=== PATIENT | female | born 1965 | race Caucasian/White ===

== ENCOUNTER → 2018-01-02 16:35 | Outpatient (CLI) | payer OTHER, SELFPAY ==
[2018-01-02 17:07] LABS: Add Manual Diff / Slide Review NO; Basophils Percent Auto 1.2 % (0-2); Eosinophils Percent Auto 2.1 % (2-4); Hematocrit 42.2 % (36-46); Hemoglobin 14.3 g/dL (12.0-16.0); Lymphocytes Percent Auto 22.9 % (25-40); Mean Corpuscular HGB Conc 33.8 % (30-36); Mean Corpuscular Hemoglobin 29.2 PG (26-34); Mean Corpuscular Volume 86.5 fL (80-100); Monocytes Percent Auto 7.9 % (3-14); Neutrophils Absolute Auto 6000 /uL (3000-5900); Neutrophils Percent Auto 65.9 % (50-75); Platelet Count 235 X10^3/uL (150-400); Red Blood Cell Count 4.88 X10^6/uL (4.0-5.2); Red Cell Distribution Width 13.7 % (11.6-14.8); White Blood Cell Count 9.1 X10^3/uL (4.5-11.0)
[2018-01-02 17:30] LABS: Alanine Aminotransferase 32 IU/L (9-52); Albumin 4.1 g/dL (3.5-5.0); Albumin Globulin Ratio 1.4 (1.0-2.8); Alkaline Phosphatase 64 U/L (38-126); Aspartate Aminotransferase 23 IU/L (14-36); Bilirubin Total 0.4 mg/dL (0.2-1.3); Blood Urea Nitrogen 18 mg/dL (7-17); Calcium 9.1 mg/dL (8.4-10.2); Carbon Dioxide 29 mmol/L (22-32); Chloride 103 mmol/L (98-107); Estimated Glomerular Filt Rate > 60.0 mL/min (>60); Glucose 88 mg/dL (70-100); HEMOLYSIS < 15 (0-50); Potassium 4.5 mmol/L (3.4-5.1); Sodium 141 mmol/L (137-145); Total Protein 7.1 g/dL (6.3-8.2)
[2018-01-02 18:00] LABS: Thyroid Stimulating Hormone 1.89 uIU/mL (0.47-4.68)
== END ==
PROVIDERS: Family Provider Family Medicine; PCP Family Medicine; Visit Provider Family Medicine
DX: E03.9 Hypothyroidism, unspecified (principal); R03.0 Elevated blood-pressure reading, without diagnosis of hypertension
CPT/HCPCS: 36415; 80053; 84443; 85025

== ENCOUNTER → 2018-02-08 16:37 | Outpatient (CLI) | payer OTHER, SELFPAY ==
[2018-02-08 17:55] LABS: Follicle Stimulating Hormone 7.14 mIU/mL; Luteinizing Hormone 5.98 mIU/mL
== END ==
PROVIDERS: PCP Family Medicine; Visit Provider Family Medicine
DX: N95.1 Menopausal and female climacteric states (principal)
CPT/HCPCS: 36415; 83001; 83002

== ENCOUNTER 2018-05-05 19:07 | Emergency (ER) | payer OTHER, SELFPAY ==
[2018-05-05 19:19] VITALS: BP 182/88; PULSE 62; RESP 14; TEMP 36.5; O2SAT 98; BMI 30.1
--- NOTE | 2018-05-05 19:38 | ED.URI ---
HPI - URI/Sore Throat <PACO Balderrama - Last Filed: 05/05/18 21:53> General Chief Complaint: Upper Respiratory Symptoms Stated Complaint: cough,back and rib pain from coughing Time Seen by Provider: 05/05/18 19:08 Source: patient Mode of arrival: ambulatory Limitations: no limitations History of Present Illness HPI Narrative: 52-year-old female with history of hypothyroidism and is a nonsmoker here for complaint of anterior chest wall pain and thoracic back pain. She reports that this started this morning. She states she has had a cough over the past 2 days. She says that the cough has aggravated the discomfort. She denies any shortness of breath. She is able to speak full sentences. No fevers. She denies a productive cough. She denies any stressors or relieves of her discomfort. No nausea vomiting. Positive p.o. intake. No diaphoresis. Related Data Previous Rx's Medication Instructions Recorded OMEPRAZOLE 20 mg PO BID #60 06/08/11 Oxybutynin Chloride (DITROPAN (NOT 5 mg PO BID #60 07/14/11 AVAILABLE)) THYROID (ARMOUR THYROID) 60 mg PO 2 TABS QDAY #60 09/16/11 benzonatate [Tessalon Perles] 200 mg PO TID PRN #20 cap 05/05/18 Allergies Allergy/AdvReac Type Severity Reaction Status Date / Time Meperidine AdvReac Unknown NAUSEA,VOMI Uncoded 06/21/17 12:04 TING Review of Systems <PACO Balderrama - Last Filed: 05/05/18 21:53> Constitutional Denies chills, Denies fatigue, Denies fever(s), Denies lethargy and Denies weakness Eyes Denies change in vision, Denies eye discharge, Denies irritation and Denies loss of vision ENT Ears, Nose, Mouth, and Throat: Denies change in voice, Denies neck pain, Denies sore throat and Denies throat swelling Cardiovascular Reports chest pain Respiratory Reports cough and Denies wheezing Gastrointestinal Gastrointestinal: Denies abdominal pain, Denies change in bowel habits, Denies diarrhea, Denies nausea and Denies vomiting Genitourinary Denies hematuria, Denies flank pain, Denies urinary incontinence and Denies urinary urgency Musculoskeletal Denies neck pain Comments: Thoracic back pain Integumentary/Breasts Denies pruritus, Denies erythema, Denies rash and Denies wounds Neurologic Denies loss of vision and Denies weakness Endocrine Denies fatigue and Denies flushing Hematologic/Lymphatic Denies easy bruising Allergic/Immunologic Denies urticaria, Denies throat swelling and Denies wheezing PFSH <PACO Balderrama - Last Filed: 05/05/18 21:53> Social History Smoking Status: Never smoker Social History Smoking Status: Never smoker Exam <PACO Balderrama - Last Filed: 05/05/18 21:53> Initial Vital Signs Initial Vital Signs: Vital Signs Temperature 97.7 F 05/05/18 19:19 Pulse Rate 62 05/05/18 19:19 Respiratory Rate 14 05/05/18 19:19 Blood Pressure 182/88 H 05/05/18 19:19 Pulse Oximetry 98 05/05/18 19:19 Const General: cooperative and well developed Nutritional Appearance: well nourished Orientation: alert, awake, oriented x3 and not confused HENTX Mouth: oral mucosae normal and moist mucous membranes Chest Other: Tenderness on palpation to the sternal area Resp Effort & Inspection: normal respiratory effort, able to speak in complete sentences, no respiratory distress and no use of accessory muscles Auscultation: clear to auscultation bilaterally, no rales, no rhonchi and no wheezes Cardio Rate: regular rate Rhythm: regular rhythm Heart Sounds: no click, no gallops, no murmurs and no rubs Pulses: normal peripheral pulses Back/Spine/Pelvis Other: Tenderness on palpation to the paraspinals of the thoracic spine. No midline tenderness. No deformities. Neuro General: alert, oriented x3, gait normal and no focal motor deficits Speech: speech normal <Feliz Wagner DO - Last Filed: 05/06/18 05:46> Initial Vital Signs Initial Vital Signs: Vital Signs Temperature 97.7 F 05/05/18 19:19 Pulse Rate 62 05/05/18 19:19 Respiratory Rate 14 05/05/18 19:19 Blood Pressure 182/88 H 05/05/18 19:19 Pulse Oximetry 98 05/05/18 19:19 Course <PACO Balderrama - Last Filed: 05/05/18 21:53> Orders Ordered: Discontinued Medications Sodium Chloride (Normal Saline 0.9%) 1,000 mls @ 150 mls/hr IV CONT ALETA Last Infusion: 05/05/18 21:07 Dose: 0 mls/hr Admin: 05/05/18 20:28 Dose: 150 mls/hr Ketorolac Tromethamine (Toradol) 30 mg IV NOW ONE Stop: 05/05/18 19:47 Last Admin: 05/05/18 20:27 Dose: 30 mg Vital Signs - 8 hr 05/05/18 19:19 05/05/18 20:18 05/05/18 21:09 Temperature 97.7 F Pulse Rate 62 60 62 Respiratory Rate 14 14 12 Blood Pressure 182/88 H 116/72 Blood Pressure [Left Arm] 172/72 H Pulse Oximetry 98 97 95 <Feliz Wagner DO - Last Filed: 05/06/18 05:46> Orders Ordered: Discontinued Medications Sodium Chloride (Normal Saline 0.9%) 1,000 mls @ 150 mls/hr IV CONT ALETA Last Infusion: 05/05/18 21:07 Dose: 0 mls/hr Admin: 05/05/18 20:28 Dose: 150 mls/hr Ketorolac Tromethamine (Toradol) 30 mg IV NOW ONE Stop: 05/05/18 19:47 Last Admin: 05/05/18 20:27 Dose: 30 mg Vital Signs - 8 hr 05/05/18 19:19 05/05/18 20:18 05/05/18 21:09 Temperature 97.7 F Pulse Rate 62 60 62 Respiratory Rate 14 14 12 Blood Pressure 182/88 H 116/72 Blood Pressure [Left Arm] 172/72 H Pulse Oximetry 98 97 95 MDM - URI/Sore Throat <PACO Balderrama - Last Filed: 05/05/18 21:53> Lab Data Result diagrams: 05/05/18 20:00 05/05/18 20:00 Lab Results 05/05/18 05/05/18 05/05/18 Range/Units 19:44 20:00 20:00 WBC 7.7 (4.5-11.0) X10^3/uL RBC 5.04 (4.0-5.2) X10^6/uL Hgb 14.5 (12.0-16.0) g/dL Hct 43.3 (36-46) % MCV 85.8 (80-100) fL MCH 28.7 (26-34) PG MCHC 33.5 (30-36) % RDW 13.9 (11.6-14.8) % Plt Count 207 (150-400) X10^3/uL Neut % (Auto) 72.6 (50-75) % Lymph % (Auto) 14.6 L (25-40) % [place] % (Auto) 10.2 (3-14) % Eos % (Auto) 1.7 L (2-4) % Baso % (Auto) 0.9 (0-2) % Neut # (Auto) 5500 (0927-8212) /uL Lymph # (Auto) 1100 (7264-1420) /uL [place] # (Auto) 800 (0-900) /uL Eos # (Auto) 100 (0-450) /uL Baso # (Auto) 100 (0-100) /uL Sodium 138 (137-145) mmol/L Potassium 3.9 (3.4-5.1) mmol/L Chloride 102 (98-107) mmol/L Carbon Dioxide 25 (22-32) mmol/L BUN 19 H (7-17) mg/dL Creatinine 0.80 (0.52-1.04) mg/dL Estimated GFR > 60.0 (>60) mL/min BUN/Creatinine Ratio 23.8 H (6-22) Glucose 90 (70-100) mg/dL Calcium 9.1 (8.4-10.2) mg/dL Total Bilirubin 0.4 (0.2-1.3) mg/dL AST 22 (14-36) IU/L ALT 25 (9-52) IU/L Alkaline Phosphatase 65 (38-126) U/L Total Creatine Kinase 37 (30-135) U/L CK-MB (CK-2) TNP CK-MB (CK-2) Rel Index TNP Troponin I < 0.012 (0.01-0.034) ng/mL Total Protein 7.6 (6.3-8.2) g/dL Albumin 4.1 (3.5-5.0) g/dL Globulin 3.5 (1.7-4.1) g/dL Albumin/Globulin Ratio 1.2 (1.0-2.8) Lipase 72 (23-300) U/L Influenza A & B (PCR) Negative (Negative) Urine Dip Bedside Urine Glucose Negative Bedside Urine Bilirubin - Negative Bedside Urine Ketone - Negative Urine Specific [place] 1.020 Bedside Urine Occult Blood +/- Bedside Urine pH 6.0 Bedside Urine Protein - Negative Bedside Urine Urobilinogen - Negative Bedside Urine Nitrite - Negative Bedside Urine Leukocytes - Negative Esterase Imaging Data Chest x-ray: Radiologist's impression: Patient: Ruth Schwartz LMR#: [id number] : 1965Acct:[id number] Age/Sex: 52 / FDate of Service: 05/05/18 Loc: ED Accession Number: [id number] Procedure: XR chest 2V Ordering Provider: Collins Mera PROCEDURE: XR CHEST 2V INDICATIONS: Chest pain back pain and cough TECHNIQUE: 2 views of the chest were acquired. COMPARISON: [facility], CHEST 2 VIEW, 03/25/2010, 11:42. FINDINGS: Surgical changes and devices: None. Lungs and pleura: Lungs are clear. Trace left-sided pleural fluid. No pneumothorax. Mediastinum: Mediastinal contours are normal. Heart size is normal. Bones and chest wall: No suspicious bony abnormalities. Soft tissues appear unremarkable. IMPRESSION: Trace left-sided pleural fluid collection layering posteriorly. Dictated by: Nini Caldera MD, PhD on 05/05/2018 at 20:13 Approved by: Nini Caldera MD, PhD on 05/05/2018 at 20:14 ECG Data Interpretation: EKG shows sinus bradycardia. With no ST elevation or depression. No ectopy. Ventricular rate of 55. Pr interval of 147. QRS duration is 74. QTC 339. [facility] Narrative Medical decision making narrative: CBC and Chem panel were obtained and were unremarkable. Cardiac enzymes were obtained and were unremarkable. Chest x-ray shows trace left-sided pleural fluid collection. No signs of pneumonia. Lipase was unremarkable. Signs and symptoms presents as a viral upper respiratory infection with secondary chest wall and back pain due to cough. She is prescribed Tessalon Perles to help with the cough. [id number] ibuprofen as needed for any discomfort. Follow up with primary care provider later this week. For any worsening symptoms return emergency room. <Feliz Wagner, - Last Filed: 05/06/18 05:46> Lab Data Lab Results 05/05/18 05/05/18 05/05/18 Range/Units 19:44 20:00 20:00 WBC 7.7 (4.5-11.0) X10^3/uL RBC 5.04 (4.0-5.2) X10^6/uL Hgb 14.5 (12.0-16.0) g/dL Hct 43.3 (36-46) % MCV 85.8 (80-100) fL MCH 28.7 (26-34) PG MCHC 33.5 (30-36) % RDW 13.9 (11.6-14.8) % Plt Count 207 (150-400) X10^3/uL Neut % (Auto) 72.6 (50-75) % Lymph % (Auto) 14.6 L (25-40) % [place] % (Auto) 10.2 (3-14) % Eos % (Auto) 1.7 L (2-4) % Baso % (Auto) 0.9 (0-2) % Neut # (Auto) 5500 (9757-3621) /uL Lymph # (Auto) 1100 (0955-9003) /uL [place] # (Auto) 800 (0-900) /uL Eos # (Auto) 100 (0-450) /uL Baso # (Auto) 100 (0-100) /uL Sodium 138 (137-145) mmol/L Potassium 3.9 (3.4-5.1) mmol/L Chloride 102 (98-107) mmol/L Carbon Dioxide 25 (22-32) mmol/L BUN 19 H (7-17) mg/dL Creatinine 0.80 (0.52-1.04) mg/dL Estimated GFR > 60.0 (>60) mL/min BUN/Creatinine Ratio 23.8 H (6-22) Glucose 90 (70-100) mg/dL Calcium 9.1 (8.4-10.2) mg/dL Total Bilirubin 0.4 (0.2-1.3) mg/dL AST 22 (14-36) IU/L ALT 25 (9-52) IU/L Alkaline Phosphatase 65 (38-126) U/L Total Creatine Kinase 37 (30-135) U/L CK-MB (CK-2) TNP CK-MB (CK-2) Rel Index TNP Troponin I < 0.012 (0.01-0.034) ng/mL Total Protein 7.6 (6.3-8.2) g/dL Albumin 4.1 (3.5-5.0) g/dL Globulin 3.5 (1.7-4.1) g/dL Albumin/Globulin Ratio 1.2 (1.0-2.8) Lipase 72 (23-300) U/L Influenza A & B (PCR) Negative (Negative) Urine Dip Bedside Urine Glucose Negative Bedside Urine Bilirubin - Negative Bedside Urine Ketone - Negative Urine Specific [place] 1.020 Bedside Urine Occult Blood +/- Bedside Urine pH 6.0 Bedside Urine Protein - Negative Bedside Urine Urobilinogen - Negative Bedside Urine Nitrite - Negative Bedside Urine Leukocytes - Negative Esterase Discharge Plan Departure Patient Disposition: Home Clinical Impression: Acute chest wall pain Upper respiratory infection Qualifiers: URI type: unspecified viral URI Qualified Code(s): J06.9 - Acute upper respiratory infection, unspecified Discharge Date/Time: 05/05/18 21:11 Interventions: ED Discharge Assessment Last Done: 05/05/18 21:09 Instructions: DI for Viral Upper Respiratory Infection -- Adult Activity Restrictions/Additional Instructions: Laboratory results and imaging today were unremarkable. Signs and symptoms presents as viral upper respiratory infection. Plenty fluids and rest. [id number] ibuprofen as needed for any discomfort. Pain to chest and back presents as chest wall pain secondary to cough. You are prescribed Tessalon Perles to help with cough healed use as directed. Follow up with primary care provider. Return emergency room for any worsening symptoms. Prescriptions: New benzonatate [Tessalon Perles] 100 mg capsule 200 mg PO TID PRN (Reason: cough) Qty: 20 RF: 0 No Action OMEPRAZOLE 20 mg PO BID Qty: 60 RF: 3 Oxybutynin Chloride (DITROPAN (NOT AVAILABLE)) 5 mg PO BID Qty: 60 RF: 3 THYROID (ARMOUR THYROID) 60 mg PO 2 TABS QDAY Qty: 60 RF: 1 Referrals: Mendez Elizabeth MD [Primary Care Provider] - <Feliz Wagner DO - Last Filed: 05/06/18 05:46> Cosign ED Attending Cosignature Attestation: I was immediately available in the department for consultation. Documentation has been reviewed. I agree with assessment and plan.
--- NOTE | 2018-05-05 19:41 | DI.RAD.S_ITS ---
PROCEDURE: XR CHEST 2V INDICATIONS: Chest pain back pain and cough TECHNIQUE: 2 views of the chest were acquired. COMPARISON: [facility], , CHEST 2 VIEW, 03/25/2010, 11:42. FINDINGS: Surgical changes and devices: None. Lungs and pleura: Lungs are clear. Trace left-sided pleural fluid. No pneumothorax. Mediastinum: Mediastinal contours are normal. Heart size is normal. Bones and chest wall: No suspicious bony abnormalities. Soft tissues appear unremarkable. IMPRESSION: Trace left-sided pleural fluid collection layering posteriorly. Dictated by: Nini Caldera MD, PhD on 05/05/2018 at 20:13 Approved by: Nini Caldera MD, PhD on 05/05/2018 at 20:14
[2018-05-05 20:09] LABS: Influenza A and B by PCR Rapid Negative (Negative)
[2018-05-05 20:13] LABS: Add Manual Diff / Slide Review NO; Basophils Absolute Auto 100 /uL (0-100); Basophils Percent Auto 0.9 % (0-2); Eosinophils Absolute Auto 100 /uL (0-450); Eosinophils Percent Auto 1.7 % (2-4); Hematocrit 43.3 % (36-46); Hemoglobin 14.5 g/dL (12.0-16.0); Lymphocytes Absolute Auto 1100 /uL (1100-4500); Lymphocytes Percent Auto 14.6 % (25-40); Mean Corpuscular HGB Conc 33.5 % (30-36); Mean Corpuscular Hemoglobin 28.7 PG (26-34); Mean Corpuscular Volume 85.8 fL (80-100); Monocytes Absolute Auto 800 /uL (0-900); Monocytes Percent Auto 10.2 % (3-14); Neutrophils Absolute Auto 5500 /uL (1500-7000); Neutrophils Percent Auto 72.6 % (50-75); Platelet Count 207 X10^3/uL (150-400); Red Blood Cell Count 5.04 X10^6/uL (4.0-5.2); Red Cell Distribution Width 13.9 % (11.6-14.8); White Blood Cell Count 7.7 X10^3/uL (4.5-11.0)
[2018-05-05 20:18] VITALS: BP 172/72; PULSE 60; RESP 14; O2SAT 97
[2018-05-05 20:25] LABS: Alanine Aminotransferase 25 IU/L (9-52); Albumin 4.1 g/dL (3.5-5.0); Albumin Globulin Ratio 1.2 (1.0-2.8); Alkaline Phosphatase 65 U/L (38-126); Aspartate Aminotransferase 22 IU/L (14-36); BUN Creatinine Ratio 23.8 (6-22); Bilirubin Total 0.4 mg/dL (0.2-1.3); Blood Urea Nitrogen 19 mg/dL (7-17); Calcium 9.1 mg/dL (8.4-10.2); Carbon Dioxide 25 mmol/L (22-32); Chloride 102 mmol/L (98-107); Creatine Kinase 37 U/L (30-135); Estimated Glomerular Filt Rate > 60.0 mL/min (>60); Globulin 3.5 g/dL (1.7-4.1); Glucose 90 mg/dL (70-100); HEMOLYSIS < 15 (0-50); Lipase 72 U/L (23-300); Potassium 3.9 mmol/L (3.4-5.1); Sodium 138 mmol/L (137-145); Total Protein 7.6 g/dL (6.3-8.2)
[2018-05-05] MEDS: KETOROLAC 60 MG/2 ML VIAL 30 MG IV (20:27)
[2018-05-05] MEDS: SODIUM CHLORIDE 0.9% 1,000 ML 150 ML IV (20:28)
[2018-05-05 20:37] LABS: Troponin I < 0.012 ng/mL (0.01-0.034)
--- NOTE | 2018-05-05 20:53 | ED_ITS ---
HPI - URI/Sore Throat <PACO Balderrama - Last Filed: 05/05/18 21:53> General Chief Complaint: Upper Respiratory Symptoms Stated Complaint: cough,back and rib pain from coughing Time Seen by Provider: 05/05/18 19:08 Source: patient Mode of arrival: ambulatory Limitations: no limitations History of Present Illness HPI Narrative: 52-year-old female with history of hypothyroidism and is a no nsmoker here for complaint of anterior chest wall pain and thoracic back pain. She reports that this started this morning. She states she has had a cough over the past 2 days. She says that the cough has aggravated the discomfort. She denies any shortness of breath. She is able to speak full sentences. No fevers. She denies a productive cough. She denies any stressors or relieves of her discomfort. No nausea vomiting. Positive p.o. intake. No diaphoresis. Related Data Previous Rx's Medication Instructions Recorded OMEPRAZOLE 20 mg PO BID #60 06/08/11 Oxybutynin Chloride (DITROPAN (NOT 5 mg PO BID #60 07/14/11 AVAILABLE)) THYROID (ARMOUR THYROID) 60 mg PO 2 TABS QDAY #60 09/16/11 benzonatate [Tessalon Perles] 200 mg PO TID PRN #20 cap 05/05/18 Allergies Allergy/AdvReac Type Severity Reaction Status Date / Time Meperidine AdvReac Unknown NAUSEA,VOMI Uncoded 06/21/17 12:04 TING Review of Systems <PACO Balderrama - Last Filed: 05/05/18 21:53> Constitutional Denies chills, Denies fatigue, Denies fever(s), Denies lethargy and Denies weakness Eyes Denies change in vision, Denies eye discharge, Denies irritation and Denies loss of vision ENT Ears, Nose, Mouth, and Throat: Denies change in voice, Denies neck pain, Denies sore throat and Denies throat swelling Cardiovascular Reports chest pain Respiratory Reports cough and Denies wheezing Gastrointestinal Gastrointestinal: Denies abdominal pain, Denies change in bowel habits, Denies diarrhea, Denies nausea and Denies vomiting Genitourinary Denies hematuria, Denies flank pain, Denies urinary incontinence and Denies urinary urgency Musculoskeletal Denies neck pain Comments: Thoracic back pain Integumentary/Breasts Denies pruritus, Denies erythema, Denies rash and Denies wounds Neurologic Denies loss of vision and Denies weakness Endocrine Denies fatigue and Denies flushing Hematologic/Lymphatic Denies easy bruising Allergic/Immunologic Denies urticaria, Denies throat swelling and Denies wheezing PFSH <PACO Balderrama - Last Filed: 05/05/18 21:53> Social History Smoking Status: Never smoker Social History Smoking Status: Never smoker Exam <PACO Balderrama - Last Filed: 05/05/18 21:53> Initial Vital Signs Initial Vital Signs: Vital Signs Temperature 97.7 F 05/05/18 19:19 Pulse Rate 62 05/05/18 19:19 Respiratory Rate 14 05/05/18 19:19 Blood Pressure 182/88 H 05/05/18 19:19 Pulse Oximetry 98 05/05/18 19:19 Const General: cooperative and well developed Nutritional Appearance: well nourished Orientation: alert, awake, oriented x3 and not confused HENND Mouth: oral mucosae normal and moist mucous membranes Chest Other: Tenderness on palpation to the sternal area Resp Effort & Inspection: normal respiratory effort, able to speak in complete sentences, no respiratory distress and no use of accessory muscles Auscultation: clear to auscultation bilaterally, no rales, no rhonchi and no wheezes Cardio Rate: regular rate Rhythm: regular rhythm Heart Sounds: no click, no gallops, no murmurs and no rubs Pulses: normal peripheral pulses Back/Spine/Pelvis Other: Tenderness on palpation to the paraspinals of the thoracic spine. No midline tenderness. No deformities. Neuro General: alert, oriented x3, gait normal and no focal motor deficits Speech: speech normal <Feliz Wagner DO - Last Filed: 05/06/18 05:46> Initial Vital Signs Initial Vital Signs: Vital Signs Temperature 97.7 F 05/05/18 19:19 Pulse Rate 62 05/05/18 19:19 Respiratory Rate 14 05/05/18 19:19 Blood Pressure 182/88 H 05/05/18 19:19 Pulse Oximetry 98 05/05/18 19:19 Course <PACO Balderrama - Last Filed: 05/05/18 21:53> Orders Ordered: Discontinued Medications Sodium Chloride (Normal Saline 0.9%) 1,000 mls @ 150 mls/hr IV CONT ALETA Last Infusion: 05/05/18 21:07 Dose: 0 mls/hr Admin: 05/05/18 20:28 Dose: 150 mls/hr Ketorolac Tromethamine (Toradol) 30 mg IV NOW ONE Stop: 05/05/18 19:47 Last Admin: 05/05/18 20:27 Dose: 30 mg Vital Signs - 8 hr 05/05/18 19:19 05/05/18 20:18 05/05/18 21:09 Temperature 97.7 F Pulse Rate 62 60 62 Respiratory Rate 14 14 12 Blood Pressure 182/88 H 116/72 Blood Pressure [Left Arm] 172/72 H Pulse Oximetry 98 97 95 <Feliz Wagner DO - Last Filed: 05/06/18 05:46> Orders Ordered: Discontinued Medications Sodium Chloride (Normal Saline 0.9%) 1,000 mls @ 150 mls/hr IV CONT ALETA Last Infusion: 05/05/18 21:07 Dose: 0 mls/hr Admin: 05/05/18 20:28 Dose: 150 mls/hr Ketorolac Tromethamine (Toradol) 30 mg IV NOW ONE Stop: 05/05/18 19:47 Last Admin: 05/05/18 20:27 Dose: 30 mg Vital Signs - 8 hr 05/05/18 19:19 05/05/18 20:18 05/05/18 21:09 Temperature 97.7 F Pulse Rate 62 60 62 Respiratory Rate 14 14 12 Blood Pressure 182/88 H 116/72 Blood Pressure [Left Arm] 172/72 H Pulse Oximetry 98 97 95 MDM - URI/Sore Throat <PACO Balderrama - Last Filed: 05/05/18 21:53> Lab Data Result diagrams: 05/05/18 20:00 05/05/18 20:00 Lab Results 05/05/18 05/05/18 05/05/18 Range/Units 19:44 20:00 20:00 WBC 7.7 (4.5-11.0) X10^3/uL RBC 5.04 (4.0-5.2) X10^6/uL Hgb 14.5 (12.0-16.0) g/dL Hct 43.3 (36-46) % MCV 85.8 (80-100) fL MCH 28.7 (26-34) PG MCHC 33.5 (30-36) % RDW 13.9 (11.6-14.8) % Plt Count 207 (150-400) X10^3/uL Neut % (Auto) 72.6 (50-75) % Lymph % (Auto) 14.6 L (25-40) % Brule % (Auto) 10.2 (3-14) % Eos % (Auto) 1.7 L (2-4) % Baso % (Auto) 0.9 (0-2) % Neut # (Auto) 5500 (1847-6118) /uL Lymph # (Auto) 1100 (9916-3102) /uL Brule # (Auto) 800 (0-900) /uL Eos # (Auto) 100 (0-450) /uL Baso # (Auto) 100 (0-100) /uL Sodium 138 (137-145) mmol/L Potassium 3.9 (3.4-5.1) mmol/L Chloride 102 (98-107) mmol/L Carbon Dioxide 25 (22-32) mmol/L BUN 19 H (7-17) mg/dL Creatinine 0.80 (0.52-1.04) mg/dL Estimated GFR > 60.0 (>60) mL/min BUN/Creatinine Ratio 23.8 H (6-22) Glucose 90 (70-100) mg/dL Calcium 9.1 (8.4-10.2) mg/dL Total Bilirubin 0.4 (0.2-1.3) mg/dL AST 22 (14-36) IU/L ALT 25 (9-52) IU/L Alkaline Phosphatase 65 (38-126) U/L Total Creatine Kinase 37 (30-135) U/L CK-MB (CK-2) TNP CK-MB (CK-2) Rel Index TNP Troponin I < 0.012 (0.01-0.034) ng/mL Total Protein 7.6 (6.3-8.2) g/dL Albumin 4.1 (3.5-5.0) g/dL Globulin 3.5 (1.7-4.1) g/dL Albumin/Globulin Ratio 1.2 (1.0-2.8) Lipase 72 (23-300) U/L Influenza A & B (PCR) Negative (Negative) Urine Dip Bedside Urine Glucose Negative Bedside Urine Bilirubin - Negative Bedside Urine Ketone - Negative Urine Specific Wilson 1.020 Bedside Urine Occult Blood +/- Bedside Urine pH 6.0 Bedside Urine Protein - Negative Bedside Urine Urobilinogen - Negative Bedside Urine Nitrite - Negative Bedside Urine Leukocytes - Negative Esterase Imaging Data Chest x-ray: Radiologist's impression: Patient: uRth Schwartz LMR#: [id number] : 1965Acct:[id number] Age/Sex: 52 / FDate of Service: 05/05/18 Loc: ED Accession Number: [id number] Procedure: XR chest 2V Ordering Provider: Collins Mera PROCEDURE: XR CHEST 2V INDICATIONS: Chest pain back pain and cough TECHNIQUE: 2 views of the chest were acquired. COMPARISON: formerly [facility], CHEST 2 VIEW, 03/25/2010, 11:42. FINDINGS: Surgical changes and devices: None. Lungs and pleura: Lungs are clear. Trace left-sided pleural fluid. No pneumothorax. Mediastinum: Mediastinal contours are normal. Heart size is normal. Bones and chest wall: No suspicious bony abnormalities. Soft tissues appear unremarkable. IMPRESSION: Trace left-sided pleural fluid collection layering posteriorly. Dictated by: Nini Caldera MD, PhD on 05/05/2018 at 20:13 Approved by: Nini Caldera MD, PhD on 05/05/2018 at 20:14 ECG Data Interpretation: EKG shows sinus bradycardia. With no ST elevation or depression. No ectopy. Ventricular rate of 55. Pr interval of 147. QRS duration is 74. QTC 339. MDM Narrative Medical decision making narrative: CBC and Chem panel were obtained and were unremarkable. Cardiac enzymes were obtained and were unremarkable. Chest x-ray shows trace left-sided pleural fluid collection. No signs of pneumonia. Lipase was unremarkable. Signs and symptoms presents as a viral upper respiratory infection with secondary chest wall and back pain due to cough. She is prescribed Tessalon Perles to help with the cough. [id number] ibuprofen as needed for any discomfort. Follow up with primary care provider later this week. For any worsening symptoms return emergency room. <Feliz Wagner, DO - Last Filed: 05/06/18 05:46> Lab Data Lab Results 05/05/18 05/05/18 05/05/18 Range/Units 19:44 20:00 20:00 WBC 7.7 (4.5-11.0) X10^3/uL RBC 5.04 (4.0-5.2) X10^6/uL Hgb 14.5 (12.0-16.0) g/dL Hct 43.3 (36-46) % MCV 85.8 (80-100) fL MCH 28.7 (26-34) PG MCHC 33.5 (30-36) % RDW 13.9 (11.6-14.8) % Plt Count 207 (150-400) X10^3/uL Neut % (Auto) 72.6 (50-75) % Lymph % (Auto) 14.6 L (25-40) % Brule % (Auto) 10.2 (3-14) % Eos % (Auto) 1.7 L (2-4) % Baso % (Auto) 0.9 (0-2) % Neut # (Auto) 5500 (9796-1594) /uL Lymph # (Auto) 1100 (3028-8889) /uL Brule # (Auto) 800 (0-900) /uL Eos # (Auto) 100 (0-450) /uL Baso # (Auto) 100 (0-100) /uL Sodium 138 (137-145) mmol/L Potassium 3.9 (3.4-5.1) mmol/L Chloride 102 (98-107) mmol/L Carbon Dioxide 25 (22-32) mmol/L BUN 19 H (7-17) mg/dL Creatinine 0.80 (0.52-1.04) mg/dL Estimated GFR > 60.0 (>60) mL/min BUN/Creatinine Ratio 23.8 H (6-22) Glucose 90 (70-100) mg/dL Calcium 9.1 (8.4-10.2) mg/dL Total Bilirubin 0.4 (0.2-1.3) mg/dL AST 22 (14-36) IU/L ALT 25 (9-52) IU/L Alkaline Phosphatase 65 (38-126) U/L Total Creatine Kinase 37 (30-135) U/L CK-MB (CK-2) TNP CK-MB (CK-2) Rel Index TNP Troponin I < 0.012 (0.01-0.034) ng/mL Total Protein 7.6 (6.3-8.2) g/dL Albumin 4.1 (3.5-5.0) g/dL Globulin 3.5 (1.7-4.1) g/dL Albumin/Globulin Ratio 1.2 (1.0-2.8) Lipase 72 (23-300) U/L Influenza A & B (PCR) Negative (Negative) Urine Dip Bedside Urine Glucose Negative Bedside Urine Bilirubin - Negative Bedside Urine Ketone - Negative Urine Specific Wilson 1.020 Bedside Urine Occult Blood +/- Bedside Urine pH 6.0 Bedside Urine Protein - Negative Bedside Urine Urobilinogen - Negative Bedside Urine Nitrite - Negative Bedside Urine Leukocytes - Negative Esterase Discharge Plan Departure Patient Disposition: Home Clinical Impression: Acute chest wall pain Upper respiratory infection Qualifiers: URI type: unspecified viral URI Qualified Code(s): J06.9 - Acute upper respira tory infection, unspecified Discharge Date/Time: 05/05/18 21:11 Interventions: ED Discharge Assessment Last Done: 05/05/18 21:09 Instructions: DI for Viral Upper Respiratory Infection -- Adult Activity Restrictions/Additional Instructions: Laboratory results and imaging today were unremarkable. Signs and symptoms presents as viral upper respiratory infection. Plenty fluids and rest. [id number] ibuprofen as needed for any discomfort. Pain to chest and back presents as chest wall pain secondary to cough. You are prescribed Tessalon Perles to help with cough healed use as directed. Follow up with primary care provider. Return emergency room for any worsening symptoms. Prescriptions: New benzonatate [Tessalon Perles] 100 mg capsule 200 mg PO TID PRN (Reason: cough) Qty: 20 RF: 0 No Action OMEPRAZOLE 20 mg PO BID Qty: 60 RF: 3 Oxybutynin Chloride (DITROPAN (NOT AVAILABLE)) 5 mg PO BID Qty: 60 RF: 3 THYROID (ARMOUR THYROID) 60 mg PO 2 TABS QDAY Qty: 60 RF: 1 Referrals: Mendez Elizabeth MD [Primary Care Provider] - <Feliz Wagner DO - Last Filed: 05/06/18 05:46> Cosign ED Attending Cosignature Attestation: I was immediately available in the de partment for consultation. Documentation has been reviewed. I agree with assessment and plan.
[2018-05-05 21:09] VITALS: BP 116/72; PULSE 62; RESP 12; O2SAT 95
== END 2018-05-05 21:11 | disposition home or self-care (01) ==
PROVIDERS: Emergency Provider Nurse Practitioner Family; Family Provider Family Medicine; PCP Family Medicine
DX: J06.9 Acute upper respiratory infection, unspecified (principal); R07.89 Other chest pain
CPT/HCPCS: 36591; 71046; 80053; 81003; 82550; 83690; 84484; 85025; 87400; 93005; 93010; 96361; 96374; 99283; 99285; J1885

== ENCOUNTER → 2018-06-09 08:00 | Outpatient (CLI) | payer OTHER, SELFPAY ==
--- NOTE | 2018-06-09 | DI.MG.S_ITS ---
BILATERAL DIGITAL SCREENING MAMMOGRAM 3D/2D WITH CAD: 06/09/2018 CLINICAL: Routine screening. Comparison is made to exams dated: 02/13/2009 [facility]. The tissue of both breasts is heterogeneously dense. This may lower the sensitivity of mammography. Current study was also evaluated with a Computer Aided Detection (CAD) system. There are a grouped calcifications in the right breast upper outer aspect middle depth that are new from most recent comparison exam of 02/13/2009. There is possible architectural distortion in the left breast posterior depth upper region seen on the mediolateral oblique view only. Additional areas of possible architectural distortion in the outer left breast at posterior depth and inner left breast at posterior depth on craniocaudal view may correlate with this finding. IMPRESSION: INCOMPLETE: NEEDS ADDITIONAL IMAGING EVALUATION 1) The grouped calcifications in the right breast upper outer aspect middle depth are indeterminate. Magnification views as well as additional views with possible ultrasound are recommended. 2) The possible architectural distortion in the left breast posterior depth upper region seen on the mediolateral oblique view only is indeterminate, with additional potentially correlating areas of possible architectural distortion in the outer left breast at posterior depth and inner left breast at posterior depth on craniocaudal view. Additional views with possible ultrasound are recommended. This exam was interpreted at Station ID: [id number]. NOTE: For mammograms, a report in lay terms will be sent to the patient. Approximately 15% of breast malignancies will not be visualized mammographically. In the management of a palpable breast mass, a negative mammogram must not discourage biopsy of a clinically suspicious lesion. Electronically Signed By: Salas Olsen M.D. ecl/:06/11/2018 09:01:40 letter sent: Additional Imaging Needed ACR BI-RADS Category 0: Incomplete [id number]
== END ==
PROVIDERS: PCP Family Medicine; Visit Provider Family Medicine
DX: Z12.31 Encounter for screening mammogram for malignant neoplasm of breast (principal)
CPT/HCPCS: 77063; 77067

== ENCOUNTER → 2018-07-03 14:44 | Outpatient (CLI) | payer OTHER, SELFPAY ==
--- NOTE | 2018-07-03 | DI.MG.S_ITS ---
BILATERAL DIGITAL DIAGNOSTIC MAMMOGRAM 3D/2D: 07/03/2018 CLINICAL: Additional evaluation requested from prior study. Comparison is made to exams dated: 06/09/2018 mammogram, 02/13/2009 mammogram, and 03/20/2007 mammogram - [facility]. The tissue of both breasts is heterogeneously dense. This may lower the sensitivity of mammography. Previously noted grouped calcifications in the right breast upper outer aspect middle depth are new from most recent comparison exam of 02/13/2009 and measure 0.3 x 0.3 x 0.3 cm in greatest extent. These demonstrate a corase morphology on magnification views. Previously noted possible architectural distortion in the left breast posterior depth upper region seen on the mediolateral oblique view only, possible architectural distortion in the outer left breast at posterior depth seen on craniocaudal view only, and possible architectural distortion in the inner left breast at posterior depth seen on craniocaudal view only on comparison screening mammograms has the appearance of benign tissue on additional views and is unchanged from comparison exam of 02/13/2009. IMPRESSION: INCOMPLETE: NEEDS ADDITIONAL IMAGING EVALUATION 1) Previously noted areas of possible architectural distortion in the left breast described on comparison screening mammograms has the appearance of benign tissue on additional views and is unchanged from comparison exam of 02/13/2009. A targeted ultrasound is recommended for further evaluation. 2) Previously noted grouped calcifications in the right breast upper outer aspect middle depth are new from most recent comparison exam of 02/13/2009 and measure 0.3 x 0.3 x 0.3 cm in greatest extent. These demonstrate a corase morphology on magnification views, and are probably benign. A follow-up diagnostic mammogram with magnification views is recommended in 6 months to demonstrate stability. This exam was interpreted at Station ID: [id number]. NOTE: For mammograms, a report in lay terms will be sent to the patient. Approximately 15% of breast malignancies will not be visualized mammographically. In the management of a palpable breast mass, a negative mammogram must not discourage biopsy of a clinically suspicious lesion. Electronically Signed By: Salas Olsen M.D. ecl/:07/03/2018 18:00:28 ACR BI-RADS Category 0: Incomplete [id number]
--- NOTE | 2018-07-03 | DI.US.S_ITS ---
LIMITED ULTRASOUND OF LEFT BREAST: 07/03/2018 CLINICAL: Additional evaluation requested from prior study. Comparison is made to exams dated: 07/03/2018 mammogram, 06/09/2018 mammogram, 02/13/2009 mammogram, 03/26/2007, and 03/20/2007 mammogram - [facility]. Real-time grayscale and Doppler ultrasound of the left breast upper aspect were performed. There is a 0.4 x 0.3 x 0.2 cm oval circumscribed anechoic cyst with posterior acoustic enhancement and no vascularity on Doppler ultrasound in the left breast at 10:00 position. There is a 0.9 x 0.3 x 0.7 cm oval circumscribed hypoechoic cyst with posterior acoustic enhancement and no vascularity on Doppler ultrasound in the left breast at 2:00 position 5 cm from the nipple. There is a 0.5 x 0.5 x 0.4 cm oval circumscribed hypoechoic mass with markedly increased vascularity on Doppler ultrasound in the left breast at 2:00 position 6 cm from the nipple; this vascularity has a possibly hilar appearance. IMPRESSION: SUSPICIOUS OF MALIGNANCY 1) 0.5 cm hypoechoic mass in the left breast at 2:00 position 6 cm from the nipple demonstrates internal vascularity suggestive of hilar flow and may represent an intramammary lymph node. An ultrasound-guided biopsy is recommended to exclude malignancy. 2) 0.4 cm benign simple cyst in the left breast at 10:00 position and 0.9 cm benign complicated cyst in the left breast at 2:00 position as described above. 3) Previously noted 0.3 cm grouped coarse calcifications in the right breast upper outer aspect middle depth seen on comparison screening and diagnostic mammography. A follow-up diagnostic mammogram with magnification views is recommended in 6 months to demonstrate stability. These results and recommendations were discussed with the patient at the time of the exam by Dr. Olsen by telephone. The patient was advised to monitor her breasts and to return sooner for re-evaluation should she feel anything grow or change. This exam was interpreted at Station ID: [id number]. Electronically Signed By: Salas Olsen M.D. ecl/:07/03/2018 18:09:48 letter sent: Biopsy Required Ultrasound BI-RADS: 4a Suspicious abnormality - low suspicion for malignancy
== END ==
PROVIDERS: PCP Family Medicine; Visit Provider Family Medicine
DX: R92.8 Other abnormal and inconclusive findings on diagnostic imaging of breast (principal); R92.1 Mammographic calcification found on diagnostic imaging of breast; N63.21 Unspecified lump in the left breast, upper outer quadrant; N60.02 Solitary cyst of left breast
CPT/HCPCS: 76642; 77066; G0279

== ENCOUNTER → 2018-07-19 13:34 | Outpatient (CLI) | payer OTHER, SELFPAY | PROVIDERS: PCP Family Medicine; Visit Provider Family Medicine | DX: N63.20 Unspecified lump in the left breast, unspecified quadrant (principal); Z53.20 Procedure and treatment not carried out because of patient's decision for unspecified reasons ==

== ENCOUNTER 2018-07-19 14:29 | Emergency (ER) | payer OTHER, SELFPAY ==
[2018-07-19] VITALS (7 sets, daily range): BP systolic 106–142; BP diastolic 51–91; PULSE 54–60; RESP 15–18; TEMP 36.8; O2SAT 94–100; BMI 31.8
--- NOTE | 2018-07-19 15:01 | DI.CT.S_ITS ---
PROCEDURE: CT HEAD/BRAIN WO CON INDICATIONS: syncope TECHNIQUE: Noncontrast 4.5 mm thick angled axial sections acquired from the foramen magnum to the vertex, with coronal and sagittal reformats. For radiation dose reduction, the following was used: automated exposure control, adjustment of mA and/or kV according to patient size. COMPARISON: None. FINDINGS: Image quality: Excellent. CSF spaces: Basal cisterns are patent. No extra-axial fluid collections. Ventricles are normal in size and shape. Brain: No midline shift. No intracranial masses or hemorrhage. Nicholson-white matter interface is normal. Skull and face: Calvarium and visualized facial bones are intact, without suspicious lesions. Incidental note is made of hyperostosis frontalis. This is not considered to be pathologic in a woman of this age. Sinuses: Visualized sinuses and mastoids are clear. IMPRESSION: No acute intracranial process is seen. Dictated by: Leonidas Foster M.D. on 07/19/2018 at 14:18 Approved by: Leonidas Foster M.D. on 07/19/2018 at 14:19
--- NOTE | 2018-07-19 15:12 | ED.SYNCOPE ---
HPI - Syncope <ROXANN Hamlin-BC - Last Filed: 07/19/18 22:18> General Chief Complaint: Syncope Stated Complaint: Syncope Time Seen by Provider: 07/19/18 14:43 Source: patient and family Mode of arrival: ambulatory Limitations: no limitations History of Present Illness HPI narrative: The patient is a 52-year-old female nonsmoker with history of hypothyroid who presents after a syncopal episode. She states that she was being prepped for a breast biopsy and felt overwhelmingly fatigued, nauseous and then passed out. she states staff is with her so she did not fall or hit her head. Bystanders reported that she was out for about 3 seconds and then confused upon waking. The patient complains of increased stress and anxiety related to breast biopsy. She denies any fevers, chest pain or shortness of breath. she states that she feels as though she is having trouble using her words, feels disoriented and feels ?very foggy. She states she has had issues with high blood pressure during stressful situations in the past. The patient states that she drove herself here after her syncopal episode. The patient is requesting that we put a IV in and sent her back to her biopsy so that she can have it under sedation. Related Data Home Medications Medication Instructions Recorded Confirmed fluticasone propionate [Flonase 1 spray INTRANASAL DAILY 07/19/18 07/19/18 Allergy Relief] omeprazole 20 mg PO BID 07/19/18 07/19/18 oxybutynin chloride 10 mg PO DAILY 07/19/18 07/19/18 sertraline 50 mg PO DAILY 07/19/18 07/19/18 thyroid (pork) [[place] Thyroid] 120 mg PO DAILY 07/19/18 07/19/18 Allergies Allergy/AdvReac Type Severity Reaction Status Date / Time Meperidine AdvReac Unknown NAUSEA,VOMI Uncoded 06/21/17 12:04 TING Review of Systems <LEIF Hamlin - Last Filed: 07/19/18 22:18> Review of Systems GENERAL: Denies chills, fatigue, malaise, fever, sweats. HEENT: Denies sinus pain, ear pain, sore throat, difficulty swallowing, dizziness. RESPIRATORY: See HPI CARDIOVASCULAR: See HPI GASTROINTESTINAL: See HPI : Denies dysuria, frequency, incontinence, hematuria, urinary retention. MUSCULOSKELETAL: denies weakness, joint pain, or bony pain SKIN: Denies rash, skin lesions, or other NEUROLOGIC: See HPI PSYCHIATRIC: No concerning psychosocial issues. 12 point review of systems is negative except for those stated above PFSH <Steph TracyROXANN- - Last Filed: 07/19/18 22:18> Social History Smoking Status: Never smoker Exam <Steph GallagherROXANN patel- - Last Filed: 07/19/18 22:18> Narrative Exam Narrative: GENERAL: This is a well-nourished, well-developed patient, lying on stretcher in no acute distress HEAD: Atraumatic. Normocephalic. No temporal or scalp tenderness. EYES: Pupils equal round and reactive. Extraocular motions intact. No scleral icterus. No injection or drainage. NECK: Trachea midline. No JVD or lymphadenopathy. Supple, nontender, no meningeal signs. CARDIOVASCULAR: Regular rate and rhythm RESPIRATORY: Clear to auscultation. Breath sounds equal bilaterally. No wheezes, rales, or rhonchi. No cough. No increased respiratory effort. GASTROINTESTINAL: Abdomen soft, non-tender, nondistended. No hepato-splenomegaly, or palpable masses. No guarding. EXTREMITIES: No clubbing, cyanosis, or edema. No joint tenderness, effusion, or edema noted. BACK: Nontender without deformity or crepitance. No flank tenderness. NEURO: AOx3. No gross cranial nerve deficit. Strength is equal upper and lower extremities bilaterally. speech is clear SKIN: No rash or erythema. Initial Vital Signs Initial Vital Signs: Vital Signs Temperature 98.3 F 07/19/18 14:36 Pulse Rate 60 07/19/18 14:36 Respiratory Rate 18 07/19/18 14:36 Blood Pressure 139/68 07/19/18 14:36 Pulse Oximetry 100 07/19/18 14:36 <Feliz Wagner DO - Last Filed: 07/20/18 18:14> Initial Vital Signs Initial Vital Signs: Vital Signs Temperature 98.3 F 07/19/18 14:36 Pulse Rate 60 07/19/18 14:36 Respiratory Rate 18 07/19/18 14:36 Blood Pressure 139/68 07/19/18 14:36 Pulse Oximetry 100 07/19/18 14:36 Course <ROXANN Hamlin-BC - Last Filed: 07/19/18 22:18> Orders Ordered: Discontinued Medications Sodium Chloride (Normal Saline 0.9%) 1,000 mls @ 1,000 mls/hr IV BOLUS ONE Stop: 07/19/18 15:59 Last Infusion: 07/19/18 16:29 Dose: 0 mls/hr Admin: 07/19/18 15:27 Dose: 1,000 mls/hr Ondansetron HCl (Zofran) 4 mg IV NOW ONE Stop: 07/19/18 15:46 Last Admin: 07/19/18 16:25 Dose: 4 mg Vital Signs - 8 hr 07/19/18 14:36 07/19/18 15:00 07/19/18 15:30 Temperature 98.3 F Pulse Rate 60 54 L 55 L Respiratory Rate 18 16 16 Blood Pressure 139/68 Blood Pressure [Left Arm] 129/65 129/65 Pulse Oximetry 100 98 94 07/19/18 16:00 07/19/18 17:00 07/19/18 18:00 Temperature Pulse Rate 58 L 58 L 59 L Respiratory Rate 15 16 16 Blood Pressure Blood Pressure [Left Arm] 108/51 L 111/52 L 106/58 L Pulse Oximetry 96 96 96 07/19/18 19:08 Temperature Pulse Rate 60 Respiratory Rate 16 Blood Pressure 142/91 H Blood Pressure [Left Arm] Pulse Oximetry 98 <Feliz Wagner DO - Last Filed: 07/20/18 18:14> Orders Ordered: Discontinued Medications Sodium Chloride (Normal Saline 0.9%) 1,000 mls @ 1,000 mls/hr IV BOLUS ONE Stop: 07/19/18 15:59 Last Infusion: 07/19/18 16:29 Dose: 0 mls/hr Admin: 07/19/18 15:27 Dose: 1,000 mls/hr Ondansetron HCl (Zofran) 4 mg IV NOW ONE Stop: 07/19/18 15:46 Last Admin: 07/19/18 16:25 Dose: 4 mg Vital Signs - 8 hr 07/19/18 14:36 07/19/18 15:00 07/19/18 15:30 Temperature 98.3 F Pulse Rate 60 54 L 55 L Respiratory Rate 18 16 16 Blood Pressure 139/68 Blood Pressure [Left Arm] 129/65 129/65 Pulse Oximetry 100 98 94 07/19/18 16:00 07/19/18 17:00 07/19/18 18:00 Temperature Pulse Rate 58 L 58 L 59 L Respiratory Rate 15 16 16 Blood Pressure Blood Pressure [Left Arm] 108/51 L 111/52 L 106/58 L Pulse Oximetry 96 96 96 07/19/18 19:08 Temperature Pulse Rate 60 Respiratory Rate 16 Blood Pressure 142/91 H Blood Pressure [Left Arm] Pulse Oximetry 98 MDM - Syncope <Steph Tracy, [employer]-BC - Last Filed: 07/19/18 22:18> Lab Data Result diagrams: 07/19/18 15:10 07/19/18 15:10 Lab Results 07/19/18 07/19/18 07/19/18 Range/Units 15:10 15:10 15:10 WBC 8.0 (4.5-11.0) X10^3/uL RBC 5.10 (4.0-5.2) X10^6/uL Hgb 14.5 (12.0-16.0) g/dL Hct 44.5 (36-46) % MCV 87.1 (80-100) fL MCH 28.4 (26-34) PG MCHC 32.6 (30-36) % RDW 14.0 (11.6-14.8) % Plt Count 200 (150-400) X10^3/uL Neut % (Auto) 72.0 (50-75) % Lymph % (Auto) 18.4 L (25-40) % Dickens % (Auto) 6.4 (3-14) % Eos % (Auto) 2.6 (2-4) % Baso % (Auto) 0.6 (0-2) % Neut # (Auto) 5700 (3134-8212) /uL Lymph # (Auto) 1500 (3334-8744) /uL Dickens # (Auto) 500 (0-900) /uL Eos # (Auto) 200 (0-450) /uL Baso # (Auto) 0 (0-100) /uL PT 11.8 (10.1-12.7) SECONDS INR 1.0 (0.9-1.3) Sodium (137-145) mmol/L Potassium (3.4-5.1) mmol/L Chloride (98-107) mmol/L Carbon Dioxide (22-32) mmol/L BUN (7-17) mg/dL Creatinine (0.52-1.04) mg/dL Estimated GFR (>60) mL/min BUN/Creatinine Ratio (6-22) Glucose (70-100) mg/dL Calcium (8.4-10.2) mg/dL Magnesium 2.0 (1.6-2.3) mg/dL Total Bilirubin (0.2-1.3) mg/dL AST (14-36) IU/L ALT (9-52) IU/L Alkaline Phosphatase (38-126) U/L Total Creatine Kinase (30-135) U/L CK-MB (CK-2) CK-MB (CK-2) Rel Index Troponin I (0.01-0.034) ng/mL Total Protein (6.3-8.2) g/dL Albumin (3.5-5.0) g/dL Globulin (1.7-4.1) g/dL Albumin/Globulin Ratio (1.0-2.8) Urine RBC (0-5/HPF) Urine WBC (0-5/HPF) Ur Squamous Epith Cells (0-5/HPF) Urine Bacteria (None) Urine Mucus (Negative) Ur Culture Indicated? Urine Test (Negative) 07/19/18 07/19/18 07/19/18 Range/Units 15:10 16:35 16:35 WBC (4.5-11.0) X10^3/uL RBC (4.0-5.2) X10^6/uL Hgb (12.0-16.0) g/dL Hct (36-46) % MCV (80-100) fL MCH (26-34) PG MCHC (30-36) % RDW (11.6-14.8) % Plt Count (150-400) X10^3/uL Neut % (Auto) (50-75) % Lymph % (Auto) (25-40) % Dickens % (Auto) (3-14) % Eos % (Auto) (2-4) % Baso % (Auto) (0-2) % Neut # (Auto) (7650-9502) /uL Lymph # (Auto) (9506-5581) /uL Dickens # (Auto) (0-900) /uL Eos # (Auto) (0-450) /uL Baso # (Auto) (0-100) /uL PT (10.1-12.7) SECONDS INR (0.9-1.3) Sodium 139 (137-145) mmol/L Potassium 4.0 (3.4-5.1) mmol/L Chloride 105 (98-107) mmol/L Carbon Dioxide 23 (22-32) mmol/L BUN 20 H (7-17) mg/dL Creatinine 0.80 (0.52-1.04) mg/dL Estimated GFR > 60.0 (>60) mL/min BUN/Creatinine Ratio 25.0 H (6-22) Glucose 104 H (70-100) mg/dL Calcium 8.6 (8.4-10.2) mg/dL Magnesium (1.6-2.3) mg/dL Total Bilirubin 0.3 (0.2-1.3) mg/dL AST 30 (14-36) IU/L ALT 32 (9-52) IU/L Alkaline Phosphatase 64 (38-126) U/L Total Creatine Kinase 60 (30-135) U/L CK-MB (CK-2) TNP CK-MB (CK-2) Rel Index TNP Troponin I < 0.012 (0.01-0.034) ng/mL Total Protein 7.6 (6.3-8.2) g/dL Albumin 4.1 (3.5-5.0) g/dL Globulin 3.5 (1.7-4.1) g/dL Albumin/Globulin Ratio 1.2 (1.0-2.8) Urine RBC 1-5/hpf (0-5/HPF) Urine WBC 1-5/hpf (0-5/HPF) Ur Squamous Epith Cells 1-5 /hpf (0-5/HPF) Urine Bacteria Occasional (0-1) (None) Urine Mucus 1+ H (Negative) Ur Culture Indicated? Cult not indicated Urine Test Negative (Negative) 07/19/18 Range/Units 18:00 WBC (4.5-11.0) X10^3/uL RBC (4.0-5.2) X10^6/uL Hgb (12.0-16.0) g/dL Hct (36-46) % MCV (80-100) fL MCH (26-34) PG MCHC (30-36) % RDW (11.6-14.8) % Plt Count (150-400) X10^3/uL Neut % (Auto) (50-75) % Lymph % (Auto) (25-40) % Dickens % (Auto) (3-14) % Eos % (Auto) (2-4) % Baso % (Auto) (0-2) % Neut # (Auto) (4091-7870) /uL Lymph # (Auto) (2409-2353) /uL Dickens # (Auto) (0-900) /uL Eos # (Auto) (0-450) /uL Baso # (Auto) (0-100) /uL PT (10.1-12.7) SECONDS INR (0.9-1.3) Sodium (137-145) mmol/L Potassium (3.4-5.1) mmol/L Chloride (98-107) mmol/L Carbon Dioxide (22-32) mmol/L BUN (7-17) mg/dL Creatinine (0.52-1.04) mg/dL Estimated GFR (>60) mL/min BUN/Creatinine Ratio (6-22) Glucose (70-100) mg/dL Calcium (8.4-10.2) mg/dL Magnesium (1.6-2.3) mg/dL Total Bilirubin (0.2-1.3) mg/dL AST (14-36) IU/L ALT (9-52) IU/L Alkaline Phosphatase (38-126) U/L Total Creatine Kinase (30-135) U/L CK-MB (CK-2) CK-MB (CK-2) Rel Index Troponin I < 0.012 (0.01-0.034) ng/mL Total Protein (6.3-8.2) g/dL Albumin (3.5-5.0) g/dL Globulin (1.7-4.1) g/dL Albumin/Globulin Ratio (1.0-2.8) Urine RBC (0-5/HPF) Urine WBC (0-5/HPF) Ur Squamous Epith Cells (0-5/HPF) Urine Bacteria (None) Urine Mucus (Negative) Ur Culture Indicated? Urine Test (Negative) Point of Care Testing Glucose POC 100 Urine Dip Bedside Urine Glucose Negative Bedside Urine Bilirubin - Negative Bedside Urine Ketone - Negative Urine Specific [place] 1.020 Bedside Urine Occult Blood +/- Bedside Urine pH 6.5 Bedside Urine Protein +/- 15 Bedside Urine Urobilinogen +/- 1mg Bedside Urine Nitrite - Negative Bedside Urine Leukocytes - Negative Esterase Imaging Data CT scan - head: Radiologist's impression: [address] [id number] [address] Scan Report Signed Patient: Ruth Schwartz LMR#: [id number] : 1965Acct:[id number] Age/Sex: 52 / FDate of Service: 07/19/18 Loc: ED Accession Number: [id number] Procedure: CT head/brain wo con Ordering Provider: Steph Tracy PROCEDURE: CT HEAD/BRAIN WO CON INDICATIONS: syncope TECHNIQUE: Noncontrast 4.5 mm thick angled axial sections acquired from the foramen magnum to the vertex, with coronal and sagittal reformats. For radiation dose reduction, the following was used: automated exposure control, adjustment of mA and/or kV according to patient size. COMPARISON: None. FINDINGS: Image quality: Excellent. CSF spaces: Basal cisterns are patent. No extra-axial fluid collections. Ventricles are normal in size and shape. Brain: No midline shift. No intracranial masses or hemorrhage. Nicholson-white matter interface is normal. Skull and face: Calvarium and visualized facial bones are intact, without suspicious lesions. Incidental note is made of hyperostosis frontalis. This is not considered to be pathologic in a woman of this age. Sinuses: Visualized sinuses and mastoids are clear. IMPRESSION: No acute intracranial process is seen. Dictated by: Leonidas Foster M.D. on 07/19/2018 at 14:18 Approved by: Leonidas Foster M.D. on 07/19/2018 at 14:19 ECG Data Attestation: I personally reviewed and interpreted this ECG as follows: Interpretation: Sinus bradycardia. Ventricular rate 51. No ectopy noted. No ST elevation depression MDM Narrative Medical decision making narrative: The patient is a 52-year-old female who presents with syncope just prior to a breast biopsy during a period of significant stress. Her description of the incident is concurrent with a vagal episode. She had 2 negative troponins, lab work was within normal limits, and a normal head CT. She felt much improved throughout her stay in the emergency department. She recurrent syncopal episodes. The patient requested to go home. I discussed at length the importance of following up with primary care provider. Discussed return precautions of chest pain, shortness of breath concerning heart attack or stroke. <Feliz Wagner DO - Last Filed: 07/20/18 18:14> Lab Data Lab Results 07/19/18 07/19/18 07/19/18 Range/Units 15:10 15:10 15:10 WBC 8.0 (4.5-11.0) X10^3/uL RBC 5.10 (4.0-5.2) X10^6/uL Hgb 14.5 (12.0-16.0) g/dL Hct 44.5 (36-46) % MCV 87.1 (80-100) fL MCH 28.4 (26-34) PG MCHC 32.6 (30-36) % RDW 14.0 (11.6-14.8) % Plt Count 200 (150-400) X10^3/uL Neut % (Auto) 72.0 (50-75) % Lymph % (Auto) 18.4 L (25-40) % Dickens % (Auto) 6.4 (3-14) % Eos % (Auto) 2.6 (2-4) % Baso % (Auto) 0.6 (0-2) % Neut # (Auto) 5700 (0231-8443) /uL Lymph # (Auto) 1500 (4124-6547) /uL Dickens # (Auto) 500 (0-900) /uL Eos # (Auto) 200 (0-450) /uL Baso # (Auto) 0 (0-100) /uL PT 11.8 (10.1-12.7) SECONDS INR 1.0 (0.9-1.3) Sodium (137-145) mmol/L Potassium (3.4-5.1) mmol/L Chloride (98-107) mmol/L Carbon Dioxide (22-32) mmol/L BUN (7-17) mg/dL Creatinine (0.52-1.04) mg/dL Estimated GFR (>60) mL/min BUN/Creatinine Ratio (6-22) Glucose (70-100) mg/dL Calcium (8.4-10.2) mg/dL Magnesium 2.0 (1.6-2.3) mg/dL Total Bilirubin (0.2-1.3) mg/dL AST (14-36) IU/L ALT (9-52) IU/L Alkaline Phosphatase (38-126) U/L Total Creatine Kinase (30-135) U/L CK-MB (CK-2) CK-MB (CK-2) Rel Index Troponin I (0.01-0.034) ng/mL Total Protein (6.3-8.2) g/dL Albumin (3.5-5.0) g/dL Globulin (1.7-4.1) g/dL Albumin/Globulin Ratio (1.0-2.8) Urine RBC (0-5/HPF) Urine WBC (0-5/HPF) Ur Squamous Epith Cells (0-5/HPF) Urine Bacteria (None) Urine Mucus (Negative) Ur Culture Indicated? Urine Test (Negative) 07/19/18 07/19/18 07/19/18 Range/Units 15:10 16:35 16:35 WBC (4.5-11.0) X10^3/uL RBC (4.0-5.2) X10^6/uL Hgb (12.0-16.0) g/dL Hct (36-46) % MCV (80-100) fL MCH (26-34) PG MCHC (30-36) % RDW (11.6-14.8) % Plt Count (150-400) X10^3/uL Neut % (Auto) (50-75) % Lymph % (Auto) (25-40) % Dickens % (Auto) (3-14) % Eos % (Auto) (2-4) % Baso % (Auto) (0-2) % Neut # (Auto) (9825-1884) /uL Lymph # (Auto) (5234-8202) /uL Dickens # (Auto) (0-900) /uL Eos # (Auto) (0-450) /uL Baso # (Auto) (0-100) /uL PT (10.1-12.7) SECONDS INR (0.9-1.3) Sodium 139 (137-145) mmol/L Potassium 4.0 (3.4-5.1) mmol/L Chloride 105 (98-107) mmol/L Carbon Dioxide 23 (22-32) mmol/L BUN 20 H (7-17) mg/dL Creatinine 0.80 (0.52-1.04) mg/dL Estimated GFR > 60.0 (>60) mL/min BUN/Creatinine Ratio 25.0 H (6-22) Glucose 104 H (70-100) mg/dL Calcium 8.6 (8.4-10.2) mg/dL Magnesium (1.6-2.3) mg/dL Total Bilirubin 0.3 (0.2-1.3) mg/dL AST 30 (14-36) IU/L ALT 32 (9-52) IU/L Alkaline Phosphatase 64 (38-126) U/L Total Creatine Kinase 60 (30-135) U/L CK-MB (CK-2) TNP CK-MB (CK-2) Rel Index TNP Troponin I < 0.012 (0.01-0.034) ng/mL Total Protein 7.6 (6.3-8.2) g/dL Albumin 4.1 (3.5-5.0) g/dL Globulin 3.5 (1.7-4.1) g/dL Albumin/Globulin Ratio 1.2 (1.0-2.8) Urine RBC 1-5/hpf (0-5/HPF) Urine WBC 1-5/hpf (0-5/HPF) Ur Squamous Epith Cells 1-5 /hpf (0-5/HPF) Urine Bacteria Occasional (0-1) (None) Urine Mucus 1+ H (Negative) Ur Culture Indicated? Cult not indicated Urine Test Negative (Negative) 07/19/18 Range/Units 18:00 WBC (4.5-11.0) X10^3/uL RBC (4.0-5.2) X10^6/uL Hgb (12.0-16.0) g/dL Hct (36-46) % MCV (80-100) fL MCH (26-34) PG MCHC (30-36) % RDW (11.6-14.8) % Plt Count (150-400) X10^3/uL Neut % (Auto) (50-75) % Lymph % (Auto) (25-40) % Dickens % (Auto) (3-14) % Eos % (Auto) (2-4) % Baso % (Auto) (0-2) % Neut # (Auto) (4153-7724) /uL Lymph # (Auto) (6985-3810) /uL Dickens # (Auto) (0-900) /uL Eos # (Auto) (0-450) /uL Baso # (Auto) (0-100) /uL PT (10.1-12.7) SECONDS INR (0.9-1.3) Sodium (137-145) mmol/L Potassium (3.4-5.1) mmol/L Chloride (98-107) mmol/L Carbon Dioxide (22-32) mmol/L BUN (7-17) mg/dL Creatinine (0.52-1.04) mg/dL Estimated GFR (>60) mL/min BUN/Creatinine Ratio (6-22) Glucose (70-100) mg/dL Calcium (8.4-10.2) mg/dL Magnesium (1.6-2.3) mg/dL Total Bilirubin (0.2-1.3) mg/dL AST (14-36) IU/L ALT (9-52) IU/L Alkaline Phosphatase (38-126) U/L Total Creatine Kinase (30-135) U/L CK-MB (CK-2) CK-MB (CK-2) Rel Index Troponin I < 0.012 (0.01-0.034) ng/mL Total Protein (6.3-8.2) g/dL Albumin (3.5-5.0) g/dL Globulin (1.7-4.1) g/dL Albumin/Globulin Ratio (1.0-2.8) Urine RBC (0-5/HPF) Urine WBC (0-5/HPF) Ur Squamous Epith Cells (0-5/HPF) Urine Bacteria (None) Urine Mucus (Negative) Ur Culture Indicated? Urine Test (Negative) Point of Care Testing Glucose POC 100 Urine Dip Bedside Urine Glucose Negative Bedside Urine Bilirubin - Negative Bedside Urine Ketone - Negative Urine Specific Midway 1.020 Bedside Urine Occult Blood +/- Bedside Urine pH 6.5 Bedside Urine Protein +/- 15 Bedside Urine Urobilinogen +/- 1mg Bedside Urine Nitrite - Negative Bedside Urine Leukocytes - Negative Esterase Discharge Plan Departure Patient Disposition: Home Clinical Impression: Syncope Qualifiers: Syncope type: unspecified Qualified Code(s): R55 - Syncope and collapse Discharge Date/Time: 07/19/18 19:09 Interventions: ED Discharge Assessment Last Done: 07/19/18 19:08 Instructions: DI for Syncope in Adults (Fainting) Activity Restrictions/Additional Instructions: your lab work and head CT came back normal. please follow up with your primary care provider in the next few days. Come back to the emergency department for any acute concerns such as chest pain shortness of breath or repeat syncope. Please rest and push fluids. Prescriptions: No Action oxybutynin chloride 10 mg tablet extended release 24hr 10 mg PO DAILY RF: 0 omeprazole 20 mg capsule,delayed release(DR/EC) 20 mg PO BID RF: 0 sertraline 50 mg tablet 50 mg PO DAILY RF: 0 thyroid (pork) [[place] Thyroid] 120 mg tablet 120 mg PO DAILY RF: 0 fluticasone propionate [Flonase Allergy Relief] 50 mcg/actuation [place],Suspension 1 spray Intranasal DAILY RF: 0 Referrals: Mendez Elizabeth MD [Primary Care Provider] - <Feliz Wagner DO - Last Filed: 07/20/18 18:14> Cosign ED Attending Santanaature Attestation: I was immediately available in the department for consultation. Documentation has been reviewed. I agree with assessment and plan.
[2018-07-19 15:16] LABS: Add Manual Diff / Slide Review NO; Basophils Absolute Auto 0 /uL (0-100); Basophils Percent Auto 0.6 % (0-2); Eosinophils Absolute Auto 200 /uL (0-450); Eosinophils Percent Auto 2.6 % (2-4); Hematocrit 44.5 % (36-46); Hemoglobin 14.5 g/dL (12.0-16.0); Lymphocytes Absolute Auto 1500 /uL (1100-4500); Lymphocytes Percent Auto 18.4 % (25-40); Mean Corpuscular HGB Conc 32.6 % (30-36); Mean Corpuscular Hemoglobin 28.4 PG (26-34); Mean Corpuscular Volume 87.1 fL (80-100); Monocytes Absolute Auto 500 /uL (0-900); Monocytes Percent Auto 6.4 % (3-14); Neutrophils Absolute Auto 5700 /uL (1500-7000); Platelet Count 200 X10^3/uL (150-400)
[2018-07-19 15:20] LABS: Prothrombin Time 11.8 SECONDS (10.1-12.7)
[2018-07-19] MEDS: SODIUM CHLORIDE 0.9% 1,000 ML 1000 ML IV (15:27)
[2018-07-19 15:29] LABS: Alanine Aminotransferase 32 IU/L (9-52); Albumin 4.1 g/dL (3.5-5.0); Albumin Globulin Ratio 1.2 (1.0-2.8); Alkaline Phosphatase 64 U/L (38-126); Aspartate Aminotransferase 30 IU/L (14-36); Bilirubin Total 0.3 mg/dL (0.2-1.3); Blood Urea Nitrogen 20 mg/dL (7-17); Calcium 8.6 mg/dL (8.4-10.2); Carbon Dioxide 23 mmol/L (22-32); Chloride 105 mmol/L (98-107); Creatine Kinase 60 U/L (30-135); Estimated Glomerular Filt Rate > 60.0 mL/min (>60); Globulin 3.5 g/dL (1.7-4.1); Glucose 104 mg/dL (70-100); HEMOLYSIS < 15 (0-50); Sodium 139 mmol/L (137-145); Total Protein 7.6 g/dL (6.3-8.2)
[2018-07-19 15:39] LABS: Troponin I < 0.012 ng/mL (0.01-0.034)
[2018-07-19] MEDS: ONDANSETRON 4 MG/2 ML INJ IV (16:25)
[2018-07-19 16:47] LABS: Pregnancy Test Urine Negative (Negative)
[2018-07-19 17:19] LABS: RBC Urine 1-5/HPF (0-5/HPF)
[2018-07-19 17:20] LABS: Bacteria Urine Occasional (0-1); Culture Indicated Urine Cult Not Indicated; Mucus Urine 1+ (Negative); Squamous Epithelial Cell Urine 1-5 /HPF (0-5/HPF); WBC Urine 1-5/HPF (0-5/HPF)
[2018-07-19 18:35] LABS: Troponin I < 0.012 ng/mL (0.01-0.034)
== END 2018-07-19 19:09 | disposition home or self-care (01) ==
PROVIDERS: Emergency Provider Nurse Practitioner Family; PCP Family Medicine
DX: R55 Syncope and collapse (principal); R53.83 Other fatigue; R11.0 Nausea
CPT/HCPCS: 36415; 36591; 70450; 80053; 81003; 81015; 81025; 82550; 82962; 83735; 84484; 85025; 85610; 93005; 96361; 96374; 99283; 99285; J2405

== ENCOUNTER → 2018-08-01 09:11 | Outpatient (CLI) | payer OTHER, SELFPAY ==
--- NOTE | 2018-08-01 | DI.MG.S_ITS ---
UNILATERAL LEFT DIGITAL DIAGNOSTIC MAMMOGRAM: 08/01/2018 CLINICAL: Post left breast ultrasound biopsy clip placement imaging. Comparison is made to exams dated: 07/03/2018 mammogram, 06/09/2018 mammogram, and 02/13/2009 mammogram - [facility]. The tissue of left breast is heterogeneously dense. This may lower the sensitivity of mammography. There is a marker clip in the appropriate position in the left breast at 2 o'clock posterior depth. This marker clip placement is at the biopsy site. IMPRESSION: POST PROCEDURE MAMMOGRAM FOR MARKER PLACEMENT There was a successful marker clip placement in the left breast posterior depth. This exam was interpreted at Station ID: [id number]. NOTE: For mammograms, a report in lay terms will be sent to the patient. Approximately 15% of breast malignancies will not be visualized mammographically. In the management of a palpable breast mass, a negative mammogram must not discourage biopsy of a clinically suspicious lesion. Electronically Signed By: Primitivo sandy/peninez:08/01/2018 13:24:48 ACR BI-RADS Category Post-procedure mammogram for marker placement
--- NOTE | 2018-08-01 | PATH_ITS ---
[facility] Accession Number: [id number] . 01 Material submitted: . breast - LEFT BREAST . 01 Clinical history: . 2:00 6CM FN . 01 Diagnosis: Left Breast, 2:00, 6 cm From the Nipple, Biopsy: Fragments of benign lymph node tissue; negative for malignancy. Breast parenchyma with mild fibrosis, mild cystic dilatation, and an incidental benign capillary hemangioma (<1 mm). Negative for atypia, carcinoma in situ and invasive malignancy. [facility]/08/03/2018 . 01 Electronically signed: . Dary Espinosa MD, Pathologist NPI- [id number] . 01 Gross description: . Received one formalin-filled container labeled with the patient's name and labeled left breast 2 o'clock, 6 cm FN. The specimen is received with plastic filter in container, sample loose in container. The specimen consists of multiple fragments of yellow-lowery tissue and clotted blood, which aggregate to 1.5 x 1.0 x 0.3 cm. The specimen is filtered and entirely submitted in one cassette. Collection date 08/01/2018. Collection time per container 10:30. Total fixation time 12 hours up to 24. ([facility] [place][id number]) /[facility] . 01 Microscopic: . ROSE MARY immunostain is performed on block A1 in order to assess for an epithelial neoplasm in the fragments of lymph node. The lymph nodes are negative for ROSE MARY. The external controls stain appropriately. Deeper levels are examined. . * This test was developed and its performance characteristics determined by [employer]. It has not been cleared or approved by the U.S. Food and Drug Administration. The FDA has determined that such clearance or approval is not necessary. This test is used for clinical purposes. It should not be regarded as investigational or for research. . 01 Pathologist provided ICD-10: N64.9 . 01 CPT . 940842, [id number] Performed at: [address] [facility] [address], [place], [place] [id number] MD Primitivo Esparza MD Phone: [phone]
--- NOTE | 2018-08-01 | DI.US.S_ITS ---
ULTRASOUND GUIDED BIOPSY LEFT BREAST USING VACUUM DEVICE WITH MARKING DEVICE INSERTED AND POST MAMMOGRAPHIC IMAGIN08/01/2018 CLINICAL: Left breast mass. PATIENT CONSENT: Risks (minor bleeding, infection, vasovagal reaction and repeat procedure), benefits and alternatives were explained to the patient and written informed consent was obtained. Correlation is made to exams dated: 07/03/2018 ultrasound, 07/03/2018 mammogram, 06/09/2018 mammogram, 02/13/2009 mammogram, and 03/20/2007 mammogram - [facility]. An ultrasound guided biopsy using real-time ultrasound was performed for the concerning circumscribed oval mass located in the left breast at 2 o'clock posterior depth. This was described on the previous ultrasound report. The skin was prepped in the usual manner. Local anesthetic was administered to the access site. A small incision was made in the breast. The abnormality was approached from the lateral aspect. A 13 gauge biopsy needle was placed adjacent to the abnormality under ultrasound guidance. Once the needle was documented to be in the correct location, six specimens were obtained using the Mammotome biopsy system. An A Vision clip. clip was inserted into the biopsy cavity. A sterile dressing was applied to the access site. Post procedure mammographic imaging demonstrates the location device at the targeted area. The specimens were sent to the laboratory for pathological analysis. IMPRESSION: ULTRASOUND GUIDED BIOPSY BENIGN Ultrasound guided biopsy of the mass in the left breast at 2 o'clock posterior depth was successful. Pathology indicates benign fibrosis and fragments of lymph node (LN) with no atypia present. Pathology results are concordant with imaging findings. Additionally, recommend 6 month follow up diagnostic mammogram to document stability of probably benign calcifications in the right breast upper outer quadrant at a middle depth. This exam was interpreted at Station ID: [id number]. Primitivo sandy,aty/:08/09/2018 07:33:06
== END ==
PROVIDERS: PCP Family Medicine; Visit Provider Family Medicine
DX: N60.32 Fibrosclerosis of left breast (principal); D18.09 Hemangioma of other sites
CPT/HCPCS: 19083; 77065

== ENCOUNTER 2018-09-27 06:42 | Day surgery (SDC) | payer OTHER, SELFPAY ==
[2018-09-27 07:05] VITALS: BMI 32.1
[2018-09-27 07:16] VITALS: BP 128/81; PULSE 68; RESP 15; TEMP 36.3; O2SAT 95
[2018-09-27] MEDS: SODIUM CHLORIDE 0.9% 1,000 ML 200 ML IV (07:17)
--- NOTE | 2018-09-27 07:52 | PM.HP.1 ---
History of Present Illness Date Patient Seen: 09/27/18 Time Patient Seen: 07:52 Chief complaint: [id number] Narrative: 52-year-old woman presents for 1st ever screening colonoscopy. No family history of colon or rectal cancer or polyps. No intestinal complaints Did well with her prep Patient History Family & Social History Tobacco & Substance use: Smoking Status Never smoker alcohol intake frequency 0-2 drinks per day Substance Use Type does not use Meds Home Medications Medication Instructions Recorded Confirmed Type fluticasone propionate [Flonase 1 spray INTRANASAL DAILY 07/19/18 09/27/18 History Allergy Relief] omeprazole 20 mg PO BID 07/19/18 09/27/18 History oxybutynin chloride 10 mg PO DAILY 07/19/18 09/27/18 History sertraline 50 mg PO DAILY 07/19/18 09/27/18 History thyroid (pork) [[place] Thyroid] 120 mg PO DAILY 07/19/18 09/27/18 History Allergies Allergy/AdvReac Type Severity Reaction Status Date / Time meperidine [From Demerol] AdvReac Unknown nausea/vomi Verified 09/27/18 07:03 ting Review of Systems Constitutional Constitutional: Denies fever(s) Eyes Eyes: Denies bulging eyes ENT Ears, Nose, Mouth, and Throat: No lip swelling Cardiovascular Cardiovascular: Denies generalize swelling Respiratory Respiratory: Denies stridor Gastrointestinal Gastrointestinal: Denies coffee ground emesis Musculoskeletal Musculoskeletal: Denies loss of height Integumentary/Breasts Skin/Breast: Denies wounds Neurologic Neurologic: Denies abnormal speech and Denies confusion Psychiatric Psychiatric: Denies confusion Endocrine Endocrine: Denies deepening of the voice Hematologic/Lymphatic Hematologic/Lymphatic: Denies lymphadenopathy Allergic/Immunologic Allergic/Immunologic: Denies lip swelling Exam Vital Signs (past 8 hours): - 09/27/18 07:16 Temperature 97.4 F L Pulse Rate 68 Respiratory Rate 15 Blood Pressure 128/81 Pulse Oximetry 95 Oxygen Delivery Method Room Air Const General: cooperative and healthy appearing Orientation: alert [facility] Head: normal to inspection Nose: nares normal Mouth: oral mucosae normal and lip normal Eyes Eyelids: eyelids normal Conjunctivae: conjunctivae normal Sclera: sclerae normal Neck Neck: supple and other (No thyromegally) Chest Chest: other (LCTAB , regular respiratory effort) Cardio Rhythm: regular rhythm Heart Sounds: S1 normal, S2 normal, no gallops, no murmurs and no rubs Skin General: no rashes or lesions noted Neuro General: alert and awake Psych Appearance: grossly normal Affect: normal affect Assessment & Plan Assessment & Plan narrative: 52-year-old female here for 1st ever screening colonoscopy Risks of procedure including bleeding, perforation, , hypoxia, missed lesion all discussed All questions answered Patient ready to proceed
[2018-09-27] MEDS: MIDAZOLAM 5 MG/5 ML VIAL IV (08:04)
[2018-09-27] MEDS: fentaNYL 250 MCG/5 ML INJ IV (08:05)
--- NOTE | 2018-09-27 08:26 | PM.OP.ENDO ---
Operative Date/Time/Diagnoses Date of procedure: 09/27/18 Time of procedure: 08:26 Pre-op diagnosis: Colorectal cancer screening Post-op diagnosis: same Procedure & Clinicians Study performed: Screening colonoscopy-complete Same procedure as scheduled: Yes Indications: 52-year-old woman presents for 1st ever screening colonoscopy Surgeon: Bentley Koehler Procedure Notes SCOAP/Timeout: Completed Procedure in detail: Patient was brought to the endoscopy suite. A time-out was completed. She was sedated during the entire course for procedure with 7 mg of midazolam and 150 mcg of fentanyl. A digital rectal exam was performed. This identified no abnormalities. 160 cm colonoscope was then placed through the anus and advanced through the folds of the rectum and colon. She had a very tight splenic flexure but otherwise passage of scope cecum was unremarkable. The cecum was readily identified via the appendiceal orifice, [place] foot and a prominent ileocecal valve. The scope was then slowly withdrawn visualizing the mucosa -no mucosal lesions were identified including with retroflexion of the scope at the distal rectum. Prep was excellent Scope withdrawal time: 11 Sedation minutes: 27 Specimen(s): none sent Complications: none Impression: Normal screening colonoscopy Recommendations: Colonscopy in 10 years Plan for aftercare: PACU then home Follow up: as needed Disposition: PACU
--- NOTE | 2018-09-27 08:29 | P.OP.ENDO_ITS ---
Operative Date/Time/Diagnoses Date of procedure: 09/27/18 Time of procedure: 08:26 Pre-op diagnosis: Colorectal cancer screening Post-op diagnosis: same Procedure & Clinicians Study performed: Screening colonoscopy-complete Same procedure as scheduled: Yes Indications: 52-year-old woman presents for 1st ever screening colonoscopy Surgeon: Bentley Koehler Procedure Notes SCOAP/Timeout: Completed Procedure in detail: Patient was brought to the endoscopy suite. A time-out was completed. She was sedated during the entire course for procedure with 7 mg of midazolam and 150 mcg of fentanyl. A digital rectal exam was performed. This identified no abnormalities. 160 cm colonoscope was then placed through the anus and advanced through the folds of the rectum and colon. She had a very tight splenic flexure but otherwise passage of scope cecum was unremarkable. The cecum was readily identified via the appendiceal orifice, [place]'s foot and a prominent ileocecal valve. The scope was then slowly withdrawn visualizing the mucosa -no mucosal lesions were identified including with retroflexion of the scope at the distal rectum. Prep was excellent Scope withdrawal time: 11 Sedation minutes: 27 Specimen(s): none sent Complications: none Impression: Normal screening colonoscopy Recommendations: Colonscopy in 10 years Plan for aftercare: PACU then home Follow up: as needed Disposition: PACU
[2018-09-27 08:34] VITALS: BP 106/56; PULSE 59; RESP 12; TEMP 36.6; O2SAT 94
[2018-09-27 08:40] VITALS: BP 103/54; PULSE 48; RESP 10; O2SAT 97
[2018-09-27 08:48] VITALS: BP 120/60; PULSE 52; RESP 12; O2SAT 95
[2018-09-27 08:53] VITALS: BP 122/57; PULSE 63; RESP 12; TEMP 37.6; O2SAT 97
[2018-09-27 09:23] VITALS: BP 120/68; PULSE 54; TEMP 37.3; O2SAT 100
== END 2018-09-27 09:27 | disposition home or self-care (01) ==
PROVIDERS: PCP Family Medicine; Visit Provider Surgery
PROC: 0DJD8ZZ Inspection of Lower Intestinal Tract, Via Natural or Artificial Opening Endoscopic (ICD-10-PCS; CPT 45378; principal; 2018-09-27 07:45)
DX: Z12.11 Encounter for screening for malignant neoplasm of colon (principal)
CPT/HCPCS: 45378; 99152; J2250; J3010

== ENCOUNTER → 2018-12-01 10:26 | Outpatient (CLI) | payer OTHER, SELFPAY ==
[2018-12-01 11:08] LABS: Hemoglobin A1C% w Est Avg Glu 5.4 % (4.0-6.0)
[2018-12-01 11:13] LABS: Cholesterol 173 mg/dL (140-199); Glucose 103 mg/dL (70-100); HDL Cholesterol 44 mg/dL (40-60); LDL Cholesterol Calculated 116 mg/dL (<100); Triglycerides 64 mg/dL (35-150)
== END ==
PROVIDERS: PCP Family Medicine; Visit Provider Physician Assistant
DX: Z00.00 Encounter for general adult medical examination without abnormal findings (principal)
CPT/HCPCS: 80061; 82947; 83036

== ENCOUNTER → 2019-02-02 07:59 | Outpatient (CLI) | payer OTHER, SELFPAY ==
[2019-02-02 08:48] LABS: Add Manual Diff / Slide Review NO; Basophils Absolute Auto 100 /uL (0-100); Basophils Percent Auto 0.8 % (0-2); Eosinophils Absolute Auto 200 /uL (0-450); Eosinophils Percent Auto 2.6 % (2-4); Hematocrit 43.9 % (36-46); Hemoglobin 14.8 g/dL (12.0-16.0); Lymphocytes Absolute Auto 1800 /uL (1100-4500); Lymphocytes Percent Auto 25.6 % (25-40); Mean Corpuscular HGB Conc 33.6 % (30-36); Mean Corpuscular Hemoglobin 29.2 PG (26-34); Mean Corpuscular Volume 86.8 fL (80-100); Monocytes Absolute Auto 400 /uL (0-900); Monocytes Percent Auto 6.3 % (3-14); Neutrophils Absolute Auto 4500 /uL (1500-7000); Neutrophils Percent Auto 64.7 % (50-75); Platelet Count 211 X10^3/uL (150-400); Red Blood Cell Count 5.06 X10^6/uL (4.0-5.2); White Blood Cell Count 6.9 X10^3/uL (4.5-11.0)
[2019-02-02 09:10] LABS: Alanine Aminotransferase 18 IU/L (<35); Albumin 4.1 g/dL (3.5-5.0); Albumin Globulin Ratio 1.3 (1.0-2.8); Alkaline Phosphatase 60 U/L (38-126); Aspartate Aminotransferase 23 IU/L (14-36); Bilirubin Total 0.8 mg/dL (0.2-1.3); Blood Urea Nitrogen 18 mg/dL (7-17); Carbon Dioxide 28 mmol/L (22-32); Chloride 104 mmol/L (98-107); Cholesterol 185 mg/dL (140-199); Estimated Glomerular Filt Rate > 60.0 mL/min (>60); Globulin 3.2 g/dL (1.7-4.1); Glucose 102 mg/dL (70-100); HDL Cholesterol 41 mg/dL (40-60); HEMOLYSIS < 15 (0-50); LDL Cholesterol Calculated 123 mg/dL (<100); Potassium 4.2 mmol/L (3.4-5.1); Sodium 139 mmol/L (137-145); Total Protein 7.3 g/dL (6.3-8.2); Triglycerides 107 mg/dL (35-150)
== END ==
PROVIDERS: PCP Family Medicine; Visit Provider Family Medicine
DX: Z13.220 Encounter for screening for lipoid disorders (principal); Z83.3 Family history of diabetes mellitus; R03.0 Elevated blood-pressure reading, without diagnosis of hypertension; E03.9 Hypothyroidism, unspecified; G54.0 Brachial plexus disorders; Z79.899 Other long term (current) drug therapy
CPT/HCPCS: 36415; 80053; 80061; 84443; 85025

== ENCOUNTER → 2019-03-18 17:23 | Outpatient (CLI) | payer OTHER, SELFPAY ==
--- NOTE | 2019-03-18 17:25 | DI.RAD.S_ITS ---
PROCEDURE: XR CHEST 2V INDICATIONS: Rhonchi, crackles to left lobe, r/o pneumonia TECHNIQUE: 2 views of the chest were acquired. COMPARISON: [facility], , XR CHEST 2V, 05/05/2018, 20:06. FINDINGS: Surgical changes and devices: None. Lungs and pleura: Lungs are clear. No pleural effusions or pneumothorax. Mediastinum: Mediastinal contours are normal. Heart size is normal. Bones and chest wall: No suspicious bony abnormalities. Soft tissues appear unremarkable. IMPRESSION: No evidence acute pulmonary process. Dictated by: Jamey Beck M.D. on 03/18/2019 at 18:31 Approved by: Jamey Beck M.D. on 03/18/2019 at 18:31
== END ==
PROVIDERS: Family Provider Family Medicine; PCP Family Medicine; Visit Provider Nurse Practitioner
DX: R05 Cough (principal)
CPT/HCPCS: 71046

== ENCOUNTER → 2019-05-09 14:49 | Outpatient (CLI) | payer OTHER, SELFPAY ==
--- NOTE | 2019-05-09 | DI.MG.S_ITS ---
BILATERAL DIGITAL DIAGNOSTIC MAMMOGRAM 3D/2D: 05/09/2019 CLINICAL: Late short term follow up. Comparison is made to exams dated: 08/01/2018 mammogram, 07/03/2018 mammogram, and 06/09/2018 mammogram - [facility]. The tissue of both breasts is heterogeneously dense. This may lower the sensitivity of mammography. There is a benign coarse calcification in the right breast at 11 o'clock middle depth. This is decreased in number of calcifications. No other significant masses, calcifications, or other findings are seen in either breast. IMPRESSION: There is no mammographic evidence of malignancy. A 1 year screening mammogram is recommended. This exam was interpreted at Station ID: [id number]. NOTE: For mammograms, a report in lay terms will be sent to the patient. Approximately 15% of breast malignancies will not be visualized mammographically. In the management of a palpable breast mass, a negative mammogram must not discourage biopsy of a clinically suspicious lesion. Electronically Signed By: Primitivo sandy/roberta:05/09/2019 15:36:06 letter sent: Normal Exam ACR BI-RADS Category 2: Benign Finding(s) 3342F
== END ==
PROVIDERS: Family Provider Family Medicine; PCP Family Medicine; Referring Provider Family Medicine; Visit Provider Family Medicine
DX: R92.8 Other abnormal and inconclusive findings on diagnostic imaging of breast (principal); R92.1 Mammographic calcification found on diagnostic imaging of breast
CPT/HCPCS: 77066; G0279

== ENCOUNTER → 2020-09-26 08:52 | Outpatient (CLI) | payer OTHER, SELFPAY ==
--- NOTE | 2020-09-26 | DI.MG.S_ITS ---
BILATERAL DIGITAL SCREENING MAMMOGRAM 3D/2D WITH CAD: 09/26/2020 CLINICAL: Routine screening. Comparison is made to exams dated: 05/09/2019 mammogram, 07/03/2018 mammogram, 06/09/2018 mammogram, and 03/20/2007 mammogram - [facility]. The tissue of both breasts is heterogeneously dense. This may lower the sensitivity of mammography. Current study was also evaluated with a Computer Aided Detection (CAD) system. There is a biopsy clip in the left breast. No significant masses, calcifications, or other findings are seen in either breast. There has been no significant interval change. IMPRESSION: NEGATIVE There is no mammographic evidence of malignancy. A 1 year screening mammogram is recommended. This exam was interpreted at Station ID: [id number]. NOTE: For mammograms, a report in lay terms will be sent to the patient. Approximately 15% of breast malignancies will not be visualized mammographically. In the management of a palpable breast mass, a negative mammogram must not discourage biopsy of a clinically suspicious lesion. Electronically Signed By: Julio schwab/roberta:09/28/2020 07:51:16 letter sent: Normal Exam ACR BI-RADS Category 1: Negative [id number]
== END ==
PROVIDERS: PCP Student in an Organized Health Care Education/Training Program; Referring Provider Family Medicine; Visit Provider Family Medicine
DX: Z12.31 Encounter for screening mammogram for malignant neoplasm of breast (principal)
CPT/HCPCS: 77063; 77067

== ENCOUNTER → 2022-02-02 15:17 | Outpatient (CLI) | payer BC, SELFPAY ==
--- NOTE | 2022-02-02 15:18 | DI.MRI.S_ITS ---
PROCEDURE: MR SHOULDER LT WO CON INDICATIONS: LEFT SHOULDER PAIN TECHNIQUE: Noncontrast oblique coronal T2 fast spin echo with fat saturation, oblique sagittal T1 spin echo and T2 fast spin echo with fat saturation, axial T1 spin echo and T2 fast spin echo with fat saturation through the shoulder. COMPARISON: [facility], CR, XR SHOULDER 2+ VIEWS LEFT, 12/22/2021, 17:04. FINDINGS: Image quality: Excellent. Rotator cuff: Low-grade partial bursal surface tearing of the distal supraspinatus tendon is seen. There is moderate to severe supraspinatus tendinosis and moderate infraspinatus tendinosis. The teres minor tendon is intact. There is moderate subscapularis tendinosis. The rotator cuff musculature is normal in bulk. Bones and bursae: No acute trabecular bone injury or fracture. [id number] degenerative changes are seen at the acromioclavicular joint with subchondral cystic changes and small marginal osteophytes. There is a small amount of fluid in the subacromial/subdeltoid bursa. A small amount of glenohumeral joint fluid is seen in the superior subscapularis recess. Capsule and soft tissues: No displaced labral tear is seen. There is increased signal intensity in the proximal biceps long head tendon that is consistent with tendinosis and partial intrasubstance tearing. There is partial effacement of the normal fat signal in the rotator interval. The middle glenohumeral ligament in the anterior band of the inferior glenohumeral ligament appear mildly thickened. IMPRESSION: 1. Moderate tendinosis and partial intrasubstance tearing of the proximal intra-articular portion of the biceps long head tendon. 2. Moderate to severe supraspinatus tendinosis with superimposed low-grade bursal surface partial tearing. 3. Moderate infraspinatus and subscapularis tendinosis. 4. Mild to moderate acromioclavicular joint osteoarthrosis. 5. Small subacromial/subdeltoid bursal effusion or mild bursitis. 6. Effacement of the rotator interval fat and mild thickening of the middle and inferior glenohumeral ligaments are nonspecific, but can be seen in the setting of the clinical syndrome of adhesive capsulitis. Approved by: Terry Vides M.D. on 02/04/2022 at 8:07
== END ==
PROVIDERS: PCP Physician Assistant; Referring Provider Family Medicine; Visit Provider Family Medicine
DX: M19.011 Primary osteoarthritis, right shoulder (principal); M19.012 Primary osteoarthritis, left shoulder
CPT/HCPCS: 73221

== ENCOUNTER → 2023-12-27 15:03 | Outpatient (CLI) | payer OTHER, SELFPAY ==
--- NOTE | 2023-12-27 15:04 | DI.RAD.S_ITS ---
PROCEDURE: XR FOOT RT MIN 3V INDICATIONS: Right foot injury TECHNIQUE: 3 views of the foot were acquired. COMPARISON: None. FINDINGS: Bones: Acute slightly comminuted oblique fracture through mid to distal portion of 1st distal phalangeal shaft is seen. No significant displacement at fracture site. No other fracture or dislocation. Soft tissues: No tibiotalar joint effusion. Achilles tendon appears normal. IMPRESSION: Nondisplaced and slightly comminuted oblique fracture involving mid to distal portion of 1st distal phalanx. No other fracture or dislocation. Dictated by: Kendell Manzano M.D. on 12/27/2023 at 15:27 Approved by: Kendell Manzano M.D. on 12/27/2023 at 15:29
== END ==
LOC: RAD 15:04
PROVIDERS: PCP Physician Assistant; Referring Provider Nurse Practitioner Family; Visit Provider Nurse Practitioner Family
DX: S92.424A Nondisplaced fracture of distal phalanx of right great toe, initial encounter for closed fracture (principal); S90.31XA Contusion of right foot, initial encounter; X58.XXXA Exposure to other specified factors, initial encounter
CPT/HCPCS: 73630

== ENCOUNTER 2025-03-05 19:31 | Emergency (ER) | payer OTHER, SELFPAY ==
--- OUTSIDE RECORDS SUMMARY | 2025-03-05 19:34 | XMS_ITS | Encounter Summary ---
Author Organization [facility] Address [address] [place] [address] Care Team Providers Care Lead Loader Name Role Phone Reina Michaels Primary Care Provider [phone] Encounter Details Date Type Department Care Team (Late st Contact Info) Description 08/03/2021 Abstract [facility] Family Medicine [place] [address] [place] [address] Reina Michaels PA [address] [facility] [address] [place], [place] [id number] Social History Tobacco Use Types Packs/Day Years Used Date Smoking Tobacco: Never Smokeless Tobacco: Never Alcohol Use Standard Drinks/Week Comments Never 0 (1 standard drink = 0.6 oz pur e alcohol) Comments Unknown Sex and Gender Information Value Date Recorded Sex Assigned at Female 03/23/2021 5:43 PM PST Legal Sex Female 3:53 PM PDT Gender Identity Female 03/23/2021 5:43 PM PST Sexual Orientation Straight 03/23/2021 5: 43 PM PST documented as of this encounter Plan of Treatment Not on file documented as of this encounter Visit Diagnoses Not on filedocumented in this encounter Care Teams Lead Loader Relationship Specialty Start Date End Date Reina Michaels PA [address] [place] [id number] PCP - General Physician [employer] 08/04/21 documented as of this encounter
[2025-03-05 19:37] VITALS: BP 174/89; PULSE 70; RESP 16; TEMP 36.7; O2SAT 100; BMI 29.2
[2025-03-05] MEDS: TET,DIPH,PERTUSS(ACELL),VAC/PF 0.5 ML SYRINGE IM (20:45)
--- NOTE | 2025-03-05 21:11 | ED.WOUNDLAC ---
HPI - Wound/Laceration General Chief Complaint: Wound/Laceration Stated Complaint: Lt hand laceration Time Seen by Provider: 03/05/25 20:18 Source: patient Mode of arrival: Ambulatory History of Present Illness HPI narrative: Patient is a 59 year old right hand dominant female who presents with laceration to left pointy finger. She is not on any anticoagulation. Not up to date on tetanus vaccination. No numbness, tingling, weakness, or pain. She presented at the advise of a family member. 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 Patient History Social History Smoking Status: Never smoker Smoking Status: Never smoker alcohol intake frequency: 0-2 drinks per day Exam Narrative Exam Narrative: Vitals: Afebrile, vitals within normal ranges. Gen: Well developed, well nourished, in no acute distress. Cards: Regular. Pulm: Normal work of breathing. Abd: Nondistended. Ext: Dressing taken down. Volar aspect of left pointer finger with skin avulsion that was hemostatic. Flexion/extension at DIP, PIP, MCP intact. Sensation intact. Normal cap refill. Neuro: A&Ox4, cranial nerved grossly intact, moving all 4 extremities spontaneously. Psych: Appropriate. Initial Vital Signs Initial Vital Signs: Vital Signs Temperature 98.1 F 03/05/25 19:37 Pulse Rate 70 03/05/25 19:37 Respiratory Rate 16 03/05/25 19:37 Blood Pressure 174/89 H 03/05/25 19:37 Pulse Oximetry 100 03/05/25 19:37 Oxygen Delivery Method Room Air 03/05/25 19:37 Course Orders Ordered: Discontinued Medications Diphtheria/Tetanus/Acell Pertussis (Tet,Diph,Pertuss(Acell),Vac/Pf 0.5 Ml Syringe) 0.5 ml IM .ONCE ONE Stop: 03/05/25 20:43 Last Admin: 03/05/25 20:45 Dose: 0.5 ml Documented By: ALISSA Vital Signs Vital signs: Vital Signs - 8 hr 03/05/25 19:37 Temperature 98.1 F Pulse Rate 70 Respiratory Rate 16 Blood Pressure 174/89 H Pulse Oximetry 100 Oxygen Delivery Method Room Air MDM - Wound/Laceration MDM Narrative Medical decision making narrative: 59 year old female who presents with laceration to finger. Differential diagnosis: Laceration, nerve damange, vascular damage, less likely muscular, tendon compromise. Labs: None Imaging: None EKG: Not performed Consults: None ED course: The patient presented to the ED hypertensive but otherwise hemodynamically stable. Examination revealed a hemostatic skin flap that reapproximated well with the underlying tissue. There was no evidence of deeper injury, foreign body, or active bleeding. Given the patient?s significant anxiety and aversion to needles, I discussed two management options: securing the flap with a suture versus allowing natural reapproximation supported by bandaging. The wound characteristics made either option reasonable. After reviewing risks and benefits of each approach, the patient elected conservative management with bandaging rather than suturing. I reviewed signs and symptoms of infection including increasing pain, redness, swelling, drainage, fever, or worsening wound appearance and instructed the patient to return to the ED immediately should these occur. The patient expressed understanding. 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 She agreed to receive an updated tetanus vaccination. The patient remained stable throughout her ED stay and was discharged with wound care instructions and return precautions. Discharge Plan Departure Patient Disposition: Home Clinical Impression: Laceration Activity Restrictions/Additional Instructions: You were seen in the emergency department for a finger laceration. In the ER: - Direct pressure was utilized to stop the bleeding - After discussion, it was decided to let your finger healed naturally Recommendations: - Neosporin/bacitracin as needed to encourage wound healing. - Keep the wound clean and dry. - You may shower without a bandage, allow warm soapy water to run over your finger and pat dry, then apply a bandage or sterile dressing. - Do not soak your finger in hot tubs water pools or any mora or streams until fully healed. - Return to the ER if you develop any increased pain, redness, fevers, chills, nausea, vomiting or any concerning signs of infection. Thanks for allowing me to be part of your care team. Happy holidays! 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
== END 2025-03-05 21:14 | disposition home or self-care (01) ==
PROVIDERS: Emergency Provider Student in an Organized Health Care Education/Training Program
DX: S61.211A Laceration without foreign body of left index finger without damage to nail, initial encounter (principal); Z23 Encounter for immunization; X58.XXXA Exposure to other specified factors, initial encounter
CPT/HCPCS: 90471; 99283; 90715